=== PATIENT | male | born 1940 | race Caucasian/White ===

== ENCOUNTER 2020-08-20 14:05 | Outpatient (REF) | payer MEDICARE, SELFPAY ==
[2020-08-20 14:55] LABS: Hematocrit 45.3 % (42-52); Hemoglobin 14.8 g/dl (14.0-18.0); Mean Corpuscular HGB Conc 32.7 g/dl (31.0-36.0); Mean Corpuscular Hemoglobin 30.5 pg (27.0-33.0); Mean Corpuscular Volume 93.4 fL (80-98); Mean Platelet Volume 10.5 fL (9.4-12.4); Platelet Count 169 X10*3/uL (160-400); Red Blood Count 4.85 X10*6/uL (4.60-5.80); Red Cell Distribution Width 13.8 % (11.0-16.0); White Blood Count 5.4 X10*3/uL (4.8-10.8)
[2020-08-20 15:02] LABS: Estimated Average Glucose 123 mg/dL; Hemoglobin A1c % 5.9 %
[2020-08-20 15:14] LABS: Alanine Aminotransferase 22 U/L (0-40); Albumin Level 4.1 g/dL (3.5-5.0); Alkaline Phosphatase 65 U/L (39-117); Anion Gap 11 (12-20); Aspartate Amino Transferase 20 U/L (5-37); Bilirubin Direct 0.2 mg/dL (0.0-0.5); Bilirubin Total 0.6 mg/dL (0.0-1.0); Blood Urea Nitrogen 16 mg/dL (9-16); Calcium 8.9 mg/dL (8.4-10.2); Carbon Dioxide 30 mmol/L (22-29); Chloride 104 mmol/L (96-108); Cholesterol 197 mg/dL; Estimated Glomerular Filt Rate > 60; Glucose Random 121 mg/dL (60-115); HDL Cholesterol 55 mg/dL; LDL Cholesterol Calculated 130 mg/dl; Potassium 4.4 mmol/L (3.3-5.1); Sodium 141 mmol/L (135-145); Total Protein 6.6 g/dL (6.5-8.0); Triglycerides 63 mg/dL
[2020-08-20 15:35] LABS: Thyroid Stimulating Hormone 0.76 uIU/mL (0.32-4.0)
[2020-08-24 13:06] LABS: Vitamin D 25-OH, D2 <4 ng/mL; Vitamin D 25-OH, D3 35 ng/mL; Vitamin D 25-OH, Total 35 ng/mL (30-100)
== END 2020-08-20 14:06 | disposition home or self-care (01) ==
LOC: HO.LAB 14:05
PROVIDERS: PCP Internal Medicine; Visit Provider Internal Medicine
DX: E11.9 Type 2 diabetes mellitus without complications (principal)
CPT/HCPCS: 36415; 80048; 80061; 80076; 82306; 83036; 84443; 85027

== ENCOUNTER 2020-09-16 14:53 | Outpatient (REF) | payer MEDICARE, SELFPAY ==
--- NOTE | ~2020-09-16 | XR_ITS ---
EXAMINATION: XR CERVICAL SPINE CLINICAL INFORMATION: M48.50XA - Collapsed vertebra, not elsewhere classified COMPARISON: Radiographs thoracic spine 09/16/2020 TECHNIQUE: Cervical spine is imaged in 4 views: AP, lateral, odontoid, and Fuchs. FINDINGS: The cervical vertebral bodies are normal in height. There is no cervical vertebral compression, spondylolisthesis, destructive process, or prevertebral soft tissue swelling. There are degenerative disc changes greatest at C5-C6 and C6-C7 with mild endplate sclerosis and vertebral spurring. There are also degenerative changes at the other levels of lesser severity and multilevel facet degeneration cervical spine. No visible erosive change. There are calcifications mid paraspinal soft tissues likely atherosclerotic calcification carotid arteries. XR/XR cervical spine 3V IMPRESSION: 1. Multilevel degenerative disc and degenerative facet changes. 2. No cervical vertebral compression, spondylolisthesis, or prevertebral soft tissue swelling. 3. Probable bilateral carotid atherosclerotic calcifications.
--- NOTE | ~2020-09-16 | XR_ITS ---
EXAMINATION: XR LUMBOSACRAL SPINE CLINICAL INFORMATION: M48.50XA - Collapsed vertebra, not elsewhere classified COMPARISON: Radiographs thoracic spine 09/16/2020 TECHNIQUE: Three views of the lumbosacral spine. FINDINGS: There is normal lumbar segmentation with 5 nonrib-bearing lumbar vertebrae of normal height and lumbar lordosis. There is a moderate levocurvature lumbar spine. There is no lumbar vertebral compression, spondylolisthesis, destructive process. There are multilevel degenerative disc changes present, greatest at L3-L4, L4-L5, and L5-S1. This is associated with endplate sclerosis and vertebral spurring. There is also facet degeneration at these levels. The SI joints and visualized sacrum are unremarkable. XR/XR lumbar spine 2-3V IMPRESSION: 1. Levocurvature with multilevel degenerative disc and degenerative facet changes, greatest at L3-S1. 2. No lumbar vertebral compression or spondylolisthesis.
--- NOTE | ~2020-09-16 | XR_ITS ---
EXAMINATION: XR THORACIC SPINE CLINICAL INFORMATION: M48.50XA - Collapsed vertebra, not elsewhere classified COMPARISON: Radiographs cervical spine and lumbar spine 09/16/2020. TECHNIQUE: 3 views of the thoracic spine were obtained. FINDINGS: There is accentuated kyphosis upper to mid thoracic spine with mild dextrocurvature. There is borderline wedging anterior aspect thoracic vertebrae at the kyphosis without focal compression fracture. There is no visible destructive process or spondylolisthesis or paraspinal soft tissue swelling. Multilevel degenerative disc changes are present with disc narrowing and mild endplate sclerosis and multilevel thoracic vertebral body spurring. There is enlarged cardiopericardial silhouette with bipolar pacemaker. Atrial and ventricular leads. The vascularity appears normal. No visible effusion. XR/XR thoracic spine 3V IMPRESSION: 1. Accentuated upper to mid thoracic kyphosis and mild dextrocurvature. 2. No destructive process or paraspinal soft tissue swelling. No focal compression fracture appreciated. Multilevel degenerative disc changes. 3. Enlarged cardiopericardial silhouette. Bipolar pacemaker. Vascularity unremarkable.
[2020-09-16 15:39] LABS: Glucose Urine UA NEG (NEG); Leukocyte Esterase Urine 2+ (NEG); Nitrite Urine POS (NEG); PH 5.5 (5.0-8.0); Specific Gravity - Urine >= 1.030 (1.005-1.025); Urine Blood TRACE (NEG); Urine Ketones NEG (NEG); Urine Protein TRACE MG/DL (NEG-TRACE)
[2020-09-16 16:00] LABS: Appearance Urine HAZY; Color Urine YELLOW
[2020-09-16 16:02] LABS: Bacteria Urine 1+ /LPF; WBC Urine 30-49 /HPF (0-4)
[2020-09-16 16:20] LABS: C Reactive Protein 0.15 mg/dL (< or = 0.50)
[2020-09-16 16:44] LABS: Prostate Specific Antigen Scr 2.99 ng/mL (<0.05-4.0)
== END 2020-09-16 14:54 | disposition home or self-care (01) ==
LOC: HO.LAB 14:53
PROVIDERS: PCP Internal Medicine; Visit Provider Internal Medicine
DX: M06.9 Rheumatoid arthritis, unspecified (principal); M48.50XA Collapsed vertebra, not elsewhere classified, site unspecified, initial encounter for fracture; Z12.5 Encounter for screening for malignant neoplasm of prostate
CPT/HCPCS: 36415; 72040; 72072; 72100; 81001; 84153; 86140

== ENCOUNTER 2021-02-05 09:47 | Emergency (ER) | payer MEDICARE, SELFPAY ==
[2021-02-05 09:57] VITALS: BP 188/99; BP 192/88; PULSE 60; PULSE 70; RESP 15; TEMP 37; O2SAT 95; O2SAT 97; BMI 24.5
--- NOTE | 2021-02-05 10:21 | ED.GENADULT ---
HPI - General Adult General Chief complaint: General Medical Stated complaint: not feeling well Time Seen by Provider: 02/05/21 10:13 Source: patient and EMS Mode of arrival: EMS Limitations: no limitations History of Present Illness HPI narrative: 80 y/o male with history of DM, s/p PPM, RA, smoker who presents to the ER via EMS with reports of hypoxia and increased anxiety. He reports sitting his computer when he started getting blurred vision which has happened in the past. When it happens he usually goes and lays down and it slowly improves. He reports this time it wasn't improving and he started getting anxious. He felt lightheaded. He got his home pulse oximeter which he reports showed a SpO2 60 and HR 94. He got scared and called 911. He denies ever being SOB, no chest pain, no difficulty breathing. EMS found him with normal saturations. MD complaint: hypoxia and anxiety Onset (ago): minute(s) (30) Radiation: non-radiation Severity: moderate Pain Consistency: now resolved Relieving factors: none Exacerbating factors: none Treatments prior to arrival: none Related Data Home Medications Medication Instructions Recorded Confirmed B-complex with vitamin C (Super B 1 tab PO DAILY 08/20/20 12/02/20 Complex-Vitamin C) acetaminophen 500 mg tablet 500 mg PO Q6H PRN 08/20/20 12/02/20 (Tylenol Extra Strength) cholecalciferol (vitamin D3) 10 10 mcg PO DAILY 08/20/20 12/02/20 mcg (400 unit) capsule finasteride 5 mg tablet 5 mg PO DAILY 08/20/20 12/02/20 garlic 1,000 mg capsule 1,000 mg PO DAILY 08/20/20 12/02/20 lutein 10 mg tablet 10 mg PO DAILY 08/20/20 12/02/20 tamsulosin 0.4 mg capsule 0.4 mg PO DAILY 08/20/20 12/02/20 Previous Rx's Medication Instructions Recorded amlodipine 5 mg tablet 5 mg PO DAILY #90 tab 09/27/20 lisinopril 20 mg tablet 20 mg PO DAILY #90 tab 01/30/21 Allergies Allergy/AdvReac Type Severity Reaction Status Date / Time Penicillins Allergy Mild Hives Verified 12/02/20 10:46 Review of Systems Review of Systems: Constitutional: No Fever, No Chills ENT/Mouth: No sore throat, No Rhinorrhea, No Swallowing Difficulty Eyes: No Eye Pain, No Swelling, No Redness, +blurry vision (now resolved) Cardiovascular: No Chest Pain, No SOB, No Orthopnea, No Edema Respiratory: No Cough, No Sputum, No Wheezing, No dyspnea Gastrointestinal: No Nausea, No Vomiting, No Diarrhea, No abdominal Pain Genitourinary: No Dysuria, No Urinary Frequency, No Hematuria Musculoskeletal: No joint pain, No Myalgias Skin: No Skin Lesions, No rash Neuro: No Weakness, No Numbness, + Dizziness (now resolved), No Headache Psych: + Anxiety/Panic, No Depression Heme/Lymph: No Bruising, No Lymphadenopathy Endocrine: No Polyuria, No Polydipsia [facility] Past Medical History Medical History Compression fracture of spine Diabetes High cholesterol Pacemaker Pacemaker Family History Family History Mother Breast cancer Father Substance abuse Social History Social History Housing: House Alcohol intake: never Patient Tobacco Use Status: Current everyday Tobacco user Cigarette Packs Per Day: 1 Use of substances other than those prescribed or required for medical reasons: No Advance Directives: No Advance Directives Information Provided: No service: Yes ([employer] ) Current occupational status: retired Physical Exam Vital Signs: Vital Signs: Last Vital Signs Temp 98.6 F 02/05/21 09:57 Pulse 60 02/05/21 09:57 Resp 15 02/05/21 09:57 BP 192/88 H 02/05/21 09:57 Pulse Ox 97 02/05/21 09:57 Body Mass Index 24.5 Appearance: Alert. Oriented X3. No acute distress. Eyes: Pupils equal, round and reactive to light. ENT: Pharynx normal. Neck: Normal inspection. Neck supple. CVS: Normal heart rate and rhythm. Pulses normal. Paced rhythm. Respiratory: No respiratory distress. Breath sounds normal. Abdomen: Soft and nontender. +BS x4 Skin: Skin warm and dry. Normal skin color. Normal skin turgor. No rashes. Extremities: No lower extremity edema. Neuro: Oriented X 3. No motor deficit. No sensory deficit. Ambulates with a steady gait Course Course Course Narrative: 80 y/o male presenting with transient blurred vision, anxiety and SpO2 60% at home. He is paced at 60 bpm. Most likely he reversed the SpO2 and HR. He had no SOB or chest pain. He has been saturating normally in the ER and with EMS. He is AAO x4 with a non-focal neuro exam. No visual field deficits. Doubt TIA or CVA. His symptoms are recurrent. Will monitor in the ER. Reevaluation(s) Reevaluation #1: Patient remains asymptomatic. SPO2 96% and HR 60. His episode was most likely anxiety related and he misread his pulse oximeter. He is stable for discharge back home. Discharge Plan Discharge Clinical Impression: Anxiety Patient Disposition: Home, Self-Care Instructions: Anxiety (ED) Additional Instructions: Your vital signs remained stable while in the ER and your exam was normal. It is likely you had an anxiety attack - doubt your pulse oximeter showed true low oxygen levels. Follow up with your PCP as needed. If you develop new or worsening symptoms call 911 or come back to the ER for further evaluation. Prescriptions: No Action amlodipine 5 mg tablet 5 mg PO DAILY Qty: 90 RF: 1 lisinopril 20 mg tablet 20 mg PO DAILY Qty: 90 RF: 1 finasteride 5 mg tablet 5 mg PO DAILY RF: 0 tamsulosin 0.4 mg capsule 0.4 mg PO DAILY RF: 0 cholecalciferol (vitamin D3) 10 mcg (400 unit) capsule 10 mcg PO DAILY RF: 0 B-complex with vitamin C [Super B Complex-Vitamin C] Tablet 1 tab PO DAILY RF: 0 garlic 1,000 mg capsule 1,000 mg PO DAILY RF: 0 lutein 10 mg tablet 10 mg PO DAILY RF: 0 acetaminophen [Tylenol Extra Strength] 500 mg tablet 500 mg PO Q6H PRNRF: 0 Referrals: Jin Trejo MD [Primary Care Provider] - 1 week
== END 2021-02-05 11:55 | disposition home or self-care (01) ==
PROVIDERS: Emergency Provider Emergency Medicine; PCP Internal Medicine
DX: F41.9 Anxiety disorder, unspecified (principal); R09.02 Hypoxemia; H53.8 Other visual disturbances; F17.200 Nicotine dependence, unspecified, uncomplicated; Z71.6 Tobacco abuse counseling; Z79.899 Other long term (current) drug therapy
CPT/HCPCS: 99283

== ENCOUNTER 2021-04-21 12:54 | Outpatient (REF) | payer MEDICARE, SELFPAY ==
--- NOTE | ~2021-04-21 | US_ITS ---
EXAMINATION: US LOWER EXTREMITY VENOUS (REFLUX EXAM), BILATERAL CLINICAL INDICATION: This is an 80-year-old male with venous insufficiency and varicose veins. COMPARISON: None. TECHNIQUE: Color flow triplex imaging and compression Doppler was performed to evaluate both the deep and the superficial systems bilaterally. To evaluate the superficial system, the examination was performed in the upright position. Color-flow Doppler ultrasound and compression ultrasound were utilized. In addition, maneuvers were utilized to demonstrate reflux. FINDINGS: 1. DEEP VENOUS ULTRASOUND OF THE RIGHT LOWER EXTREMITY: Common Femoral Vein: Compressible but reflux of 740 ms Femoral vein: Compressible, normal color flow and augmentation. Popliteal Vein: Compressible, normal augmentation. Deep Reflux: There is no evidence of reflux in the deep system in either the common femoral vein or the popliteal vein. There is no evidence of a Rosales's cyst. 2. SUPERFICIAL ULTRASOUND WITH DOPPLER OF RIGHT LOWER EXTREMITY: GREAT SAPHENOUS VEIN: Saphenofemoral Junction: 0.7 cm Mid Thigh: 0.3 cm Above Knee: 0.4 cm Below Knee: 0.3 cm Mid Calf: 0.3 cm Ankle: 0.3 cm GSV REFLUX: No evidence of reflux. DUPLICATED GREAT SAPHENOUS VEIN: There is a 0.4 cm duplicated lateral great saphenous vein without reflux. SMALL SAPHENOUS VEIN: Proximal: 0.3 cm Distal: 0.2 cm SSV REFLUX: No evidence of reflux. VEIN OF GIACOMINI: None Imaged. PERFORATORS: There is a 0.2 cm proximal thigh scaffold worker without reflux. There is a 0.3 cm mid thigh scaffold worker without reflux. VARICOSITIES: None Imaged 3. DEEP VENOUS ULTRASOUND OF THE LEFT LOWER EXTREMITY: Common Femoral Vein: Compressible, normal respiratory variation and augmented flow. Femoral Vein: Compressible, normal color flow and augmentation. Popliteal Vein: Compressible, normal augmentation. Deep Reflux: There is no evidence of reflux in the deep system in either the common femoral vein or the popliteal vein. There is no evidence of a Rosales's cyst. 4. SUPERFICIAL ULTRASOUND WITH DOPPLER OF LEFT LOWER EXTREMITY: GREAT SAPHENOUS VEIN: Saphenofemoral Junction: 0.6 cm Mid Thigh: 0.3 cm Above Knee: 0.3 cm Below Knee: 0.3 cm Mid Calf: 0.2 cm Ankle: 0.4 cm GSV REFLUX: No evidence of reflux. DUPLICATED GREAT SAPHENOUS VEIN: There is a 0.3 cm duplicated medial great saphenous vein without reflux. SMALL SAPHENOUS VEIN: Proximal: 0.2 cm Distal: 0.3 cm SSV REFLUX: No evidence of reflux. VEIN OF GIACOMINI: None Imaged. PERFORATORS: There are 0.3 cm mid calf perforators without reflux. VARICOSITIES: None Imaged US/US venous duplex LE BI IMPRESSION: 1. There are patent bilateral great saphenous veins and small saphenous veins, respectively, without evidence of reflux. 2. There is reflux in the right common femoral vein deep system. 3. There are bilateral perforators as noted.
== END 2021-04-21 12:55 | disposition home or self-care (01) ==
LOC: HO.US 12:54
PROVIDERS: PCP Internal Medicine; Visit Provider Nurse Practitioner Family
DX: I87.2 Venous insufficiency (chronic) (peripheral) (principal); L81.9 Disorder of pigmentation, unspecified
CPT/HCPCS: 93970

== ENCOUNTER 2021-09-15 10:45 | Outpatient (REF) | payer MEDICARE, SELFPAY ==
[2021-09-15 11:12] LABS: Appearance Urine HAZY; Color Urine YELLOW; Glucose Urine UA NEG (NEG); Leukocyte Esterase Urine 3+ (NEG); Nitrite Urine POS (NEG); PH 5.5 (5.0-8.0); Specific Gravity - Urine >= 1.030 (1.005-1.025); UACC Culture Trigger YES; Urine Blood 1+ (NEG); Urine Ketones NEG (NEG); Urine Protein 1+ MG/DL (NEG-TRACE)
[2021-09-15 11:32] LABS: Renal Epithelial Cells Urine TRACE /LPF; Squamous Epithelial Cell Urine TRACE /LPF
[2021-09-15 11:33] LABS: Bacteria Urine 1+ /LPF; RBC Urine 0-2 /HPF (0); WBC Clumps Urine NOTED
== END 2021-09-15 10:46 | disposition home or self-care (01) ==
LOC: HO.LAB 10:45
PROVIDERS: PCP Internal Medicine; Referring Provider Urology; Visit Provider Internal Medicine
DX: R30.0 Dysuria (principal)
CPT/HCPCS: 81001; 87086; 87088; 87186

== ENCOUNTER 2022-01-29 09:33 | Outpatient (REF) | payer MEDICARE, SELFPAY ==
[2022-01-29 10:18] LABS: Hematocrit 44.5 % (42.0-52.0); Hemoglobin 14.5 g/dl (14.0-18.0); Mean Corpuscular HGB Conc 32.6 g/dl (31.0-36.0); Mean Corpuscular Volume 95.1 fL (80.0-98.0); Mean Platelet Volume 10.6 fL (9.4-12.4); Platelet Count 176 X10*3/uL (160-400); Red Blood Count 4.68 X10*6/uL (4.60-5.80); Red Cell Distribution Width 13.8 % (11.0-16.0)
[2022-01-29 10:28] LABS: Estimated Average Glucose 126 mg/dL
[2022-01-29 10:53] LABS: Alanine Aminotransferase 12 U/L (0-40); Albumin Level 4.1 g/dL (3.5-5.0); Alkaline Phosphatase 63 U/L (39-117); Anion Gap 13 (12-20); Aspartate Amino Transferase 16 U/L (5-37); Bilirubin Direct 0.2 mg/dL (0.0-0.5); Bilirubin Total 0.6 mg/dL (0.0-1.0); Blood Urea Nitrogen 18 mg/dL (9-16); Calcium 9.2 mg/dL (8.4-10.2); Carbon Dioxide 30 mmol/L (22-29); Chloride 103 mmol/L (96-108); Cholesterol 193 mg/dL; Estimated Glomerular Filt Rate > 60; Glucose Random 135 mg/dL (60-115); HDL Cholesterol 55 mg/dL; LDL Cholesterol Calculated 128 mg/dl; Potassium 4.2 mmol/L (3.3-5.1); Sodium 142 mmol/L (135-145); Total Protein 6.6 g/dL (6.5-8.0); Triglycerides 51 mg/dL
[2022-01-29 11:20] LABS: Thyroid Stimulating Hormone 1.35 uIU/mL (0.32-4.0)
[2022-01-29 11:42] LABS: Appearance Urine Clear; Color Urine Dark Yellow; Glucose Urine UA Negative (Negative); Leukocyte Esterase Urine Large (3+) (Negative); Nitrite Urine Positive (Negative); PH 5.5 (5.0-9.0); UMIC TRIGGER UA YES; UMIC TRIGGER UACC YES; Urine Blood Trace (Negative); Urine Ketones Negative (Negative); Urine Protein Trace mg/dL (Neg-Trace)
[2022-01-29 11:50] LABS: Bacteria Urine Trace (None Seen); Hyaline Casts Urine 0-2 /LPF (0-2); Squamous Epithelial Cell Urine 0-2 /HPF (0-2); UACC Culture Trigger YES; WBC Urine >50 /HPF (0-5)
== END 2022-01-29 09:34 | disposition home or self-care (01) ==
LOC: HO.LAB 09:33
PROVIDERS: Internal Medicine; PCP Internal Medicine; Visit Provider Internal Medicine
DX: I87.2 Venous insufficiency (chronic) (peripheral) (principal); M06.9 Rheumatoid arthritis, unspecified; R73.9 Hyperglycemia, unspecified; R30.0 Dysuria
CPT/HCPCS: 36415; 80048; 80061; 80076; 81001; 83036; 84443; 85027; 87086; 87088; 87186

== ENCOUNTER 2022-02-13 17:35 | Outpatient (REF) | payer MEDICARE, SELFPAY ==
[2022-02-13 17:52] LABS: Appearance Urine Clear; Color Urine Dark Yellow; Glucose Urine UA Negative (Negative); Leukocyte Esterase Urine Large (3+) (Negative); Nitrite Urine Positive (Negative); PH 5.5 (5.0-9.0); UMIC TRIGGER UACC YES; Urine Blood Negative (Negative); Urine Ketones Negative (Negative); Urine Protein Trace mg/dL (Neg-Trace)
[2022-02-13 18:07] LABS: Bacteria Urine None Seen (None Seen); Hyaline Casts Urine 0-2 /LPF (0-2); RBC Urine 0-2 /HPF (0-2); Squamous Epithelial Cell Urine 0-2 /HPF (0-2); UACC Culture Trigger YES; WBC Urine >50 /HPF (0-5)
== END 2022-02-13 17:36 | disposition home or self-care (01) ==
LOC: HO.LNP 17:35
PROVIDERS: Visit Provider Internal Medicine
DX: R30.0 Dysuria (principal)
CPT/HCPCS: 81001; 87086; 87088; 87186

== ENCOUNTER 2022-02-24 18:27 | Outpatient (REF) | payer MEDICARE, SELFPAY ==
[2022-02-24 18:39] LABS: Appearance Urine Clear; Color Urine Dark Yellow; Glucose Urine UA Negative (Negative); Leukocyte Esterase Urine Large (3+) (Negative); Nitrite Urine Negative (Negative); PH 5.5 (5.0-9.0); UMIC TRIGGER UA YES; Urine Blood Negative (Negative); Urine Ketones Trace mg/dL (Negative); Urine Protein 30 (1+) mg/dL (Neg-Trace)
[2022-02-24 18:41] LABS: Bacteria Urine Trace (None Seen); Hyaline Casts Urine 0-2 /LPF (0-2); Squamous Epithelial Cell Urine 0-2 /HPF (0-2); WBC Urine >50 /HPF (0-5)
== END 2022-02-24 18:28 | disposition home or self-care (01) ==
LOC: HO.LNP 18:27
PROVIDERS: Visit Provider Internal Medicine
DX: R30.0 Dysuria (principal)
CPT/HCPCS: 81001

== ENCOUNTER 2022-05-05 17:41 | Outpatient (REF) | payer MEDICARE, SELFPAY ==
[2022-05-05 18:11] LABS: Appearance Urine Clear; Color Urine Dark Yellow; Glucose Urine UA Negative (Negative); Leukocyte Esterase Urine Moderate (2+) (Negative); Nitrite Urine Positive (Negative); PH 5.5 (5.0-9.0); UMIC TRIGGER UACC YES; Urine Blood Trace (Negative); Urine Ketones Negative (Negative); Urine Protein 30 (1+) mg/dL (Neg-Trace)
[2022-05-05 18:25] LABS: Bacteria Urine None Seen (None Seen); Hyaline Casts Urine 0-2 /LPF (0-2); Squamous Epithelial Cell Urine 0-2 /HPF (0-2); UACC Culture Trigger YES; WBC Urine >50 /HPF (0-5)
== END 2022-05-05 17:42 | disposition home or self-care (01) ==
LOC: HO.LNP 17:41
PROVIDERS: Visit Provider Internal Medicine
DX: R30.0 Dysuria (principal)
CPT/HCPCS: 81001; 87086; 87088; 87186

== ENCOUNTER → 2022-10-14 11:33 | Outpatient (BNVA) | payer MEDICARE, SELFPAY | PROVIDERS: PCP Internal Medicine; Visit Provider Neurological Surgery | DX: M48.062 Spinal stenosis, lumbar region with neurogenic claudication (principal) | CPT/HCPCS: 99202 ==

== ENCOUNTER 2022-10-22 13:01 | Outpatient (REF) | payer MEDICARE, SELFPAY ==
[2022-10-22 13:42] LABS: Estimated Average Glucose 120 mg/dL; Hemoglobin A1c % 5.8 %
== END 2022-10-22 13:02 | disposition home or self-care (01) ==
LOC: HO.LAB 13:01
PROVIDERS: PCP Internal Medicine; Visit Provider Nurse Practitioner Family
DX: E11.9 Type 2 diabetes mellitus without complications (principal)
CPT/HCPCS: 36415; 83036

== ENCOUNTER 2022-12-07 10:59 | Outpatient (REF) | payer MEDICARE, SELFPAY ==
--- NOTE | ~2022-12-07 | MR_ITS ---
EXAMINATION: MR LUMBAR SPINE WITHOUT CONTRAST CLINICAL INFORMATION: Spinal stenosis with neurogenic claudication. COMPARISON: Plain films of the lumbar spine 09/16/2020. TECHNIQUE: MRI of the lumbar spine was obtained using routine sequences without contrast. FINDINGS: VERTEBRAL BODIES AND PARASPINAL STRUCTURES: There is a sigmoid scoliosis convex to the right at the thoracolumbar region, and toward the left with the apex at L3-L4. There is a mild grade 1 anterolisthesis of L4 on L5 and there are retrolistheses of T11 on T12, T12 on L1 and L3 on L4. There is multilevel narrowing of intervertebral disc height, and there are degenerative endplate changes at multiple levels with relatively extensive edematous signal most prominent T11-T12 and L5-S1. There are some fatty endplate changes at L4-L5. Vertebral body heights are maintained, and no fractures are demonstrated. There are focal areas of low signal on all sequences in the body of L1, corresponding to an area of low-attenuation on the plain films, which may be consistent with air cysts. Overall, marrow signal is slightly heterogenous. There are multiple bilateral renal cysts. There is an incompletely visualized area of fullness in the right retrocrural region (image 1/30, sequence 6). There is moderately extensive sigmoid colon diverticulosis. CONUS MEDULLARIS AND CAUDA EQUINA: Normal, terminating at the level of T12-L1. The lower thoracic spinal cord appears normal. The cauda equina nerve roots and filum terminale appear normal. SPINAL LEVELS: T11-T12 and T12-L1: There are posterior disc protrusions without mass effect on the conus or lower thoracic spinal cord. There is bilateral foraminal narrowing at these levels. L1-L2: There is mild bilateral facet arthropathy. There are bilateral foraminal disc protrusions, more prominent on the left without definite exiting nerve root impingement. There is no central stenosis. L2-L3: There is mild bilateral facet arthropathy. The posterior disc protrusion which flattens the ventral thecal sac and extends into the neural foramina bilaterally, with impingement on the exiting L2 nerve roots bilaterally, more severely on the left. The left protrusion extends far laterally with impingement on the extraforaminal left L2 nerve root. There is no central stenosis. L3-L4: There is moderate right and mild left facet arthropathy with ligamenta flava hypertrophy. A posterior disc protrusion flattens the ventral thecal sac with narrowing of the bilateral subarticular recesses. There are bilateral foraminal disc protrusions impinging on the exiting L3 nerve roots bilaterally. There is moderate central stenosis. L4-L5: There is severe right and moderate left facet arthropathy. There is unroofing of the disc as a result of the anterolisthesis and there is narrowing of the bilateral subarticular recesses with impingement on the traversing L5 nerve roots bilaterally. There are bilateral foraminal disc protrusions with impingement on the exiting L4 nerve roots. There is moderate central stenosis. L5-S1: There is severe left and moderate right facet arthropathy with ligamenta flava hypertrophy and facet joint effusions. There is a posterior disc protrusion which is most prominent on the left and there is narrowing of the left greater than right subarticular recesses with impingement on the traversing S1 nerve roots. There are bilateral foraminal disc osteophyte complexes, more severe on the left with impingement on the exiting L5 nerve roots. There is mild to moderate central stenosis. MR/MR lumbar spine wo con IMPRESSION: 1. There is a sigmoid scoliosis, and there are multilevel spondylolistheses. There are no acute fractures or subluxations. 2. At L2-L3 there is a posterior disc protrusion extending into the neural foramina with impingement on the exiting L2 nerve roots bilaterally. The left disc protrusion extends far laterally with impingement on the extraforaminal left L2 nerve root. There is no central stenosis. 3. At L3-L4 there is facet arthropathy and there is a posterior disc protrusion with narrowing of the subarticular recesses. There are bilateral foraminal disc protrusions impinging on the exiting L3 nerve roots. There is moderate central stenosis. 4. At L4-L5 there is facet arthropathy and there is an anterolisthesis. There is narrowing of the bilateral subarticular recesses with impingement on the traversing L5 nerve roots. There is moderate central stenosis. There are bilateral foraminal disc protrusions impinging on the exiting L4 nerve roots. 5. At L5-S1 there is facet arthropathy and there is a posterior disc protrusion. There is narrowing of the left greater than right subarticular recesses with impingement on the traversing S1 nerve roots. There are bilateral foraminal disc osteophyte complexes impinging on the exiting L5 nerve roots. There is mild to moderate central stenosis. 6. There is an incompletely visualized area of soft tissue fullness in the right retrocrural region. There are bilateral renal cysts, most prominent on the right. There is sigmoid colon diverticulosis. These findings could be further evaluated with CT scan of the abdomen and pelvis with contrast. 7. The PSA staff will call to confirm receipt of this report with acknowledgement of the findings and any recommendations.
== END 2022-12-07 11:00 | disposition home or self-care (01) ==
LOC: HO.MRI 10:59
PROVIDERS: PCP Internal Medicine; Visit Provider Neurological Surgery
DX: M48.062 Spinal stenosis, lumbar region with neurogenic claudication (principal)
CPT/HCPCS: 72148

== ENCOUNTER 2023-01-05 14:41 | Outpatient (AMB) | payer MEDICARE, SELFPAY ==
--- NOTE | 2023-01-05 15:11 | A.SPINEOV_ITS ---
Intake Intake Visit Reasons: MRI follow up Intake Note: Mr. Goff is here today for an MRI follow up. MRI done @ [facility] – [place]. Shake Sawyer Required: No Allergies Penicillins Allergy (Mild, Verified 10/22/22 12:20) Hives Assessment & Plan Assessment & Plan (1) Lumbar stenosis with neurogenic claudication: Code(s): M48.062 - Spinal stenosis, lumbar region with neurogenic claudication Plan Dear colleague, On 01/05/2023, so for follow-up to review an MRI of the lumbar spine Russell Goff. His MRI of the lumbar spine shows moderate spinal stenosis at L3-4 and L4-5 and severe left L5 foraminal stenosis. His main complaint is back pain and stiffness in the morning and after prolonged sitting. Today on history it seems that the neurogenic claudication symptom are less pronounced than the back pain. I advised him not to undergo lumbar decompression as this will not help his back pain. I discharged him from further follow-up. I spent 20 minutes in this consult. Thank you for the referral. Do not hesitate to call me with any questions or concerns. Arnaldo Boston MD, PhD Spine Fellowship Trained Neurosurgeon Director, [facility] Coding Level of Care Code Est Pt Level 3 (92699) Diagnoses Lumbar stenosis with neurogenic claudication M48.062
== END 2023-01-05 16:09 | disposition home or self-care (01) ==
PROVIDERS: PCP Internal Medicine; Visit Provider Neurological Surgery
DX: M48.062 Spinal stenosis, lumbar region with neurogenic claudication (principal)
CPT/HCPCS: 99213

== ENCOUNTER → 2023-01-05 14:41 | Outpatient (BNVA) | payer MEDICARE, SELFPAY | PROVIDERS: PCP Internal Medicine; Visit Provider Neurological Surgery | DX: M48.062 Spinal stenosis, lumbar region with neurogenic claudication (principal) | CPT/HCPCS: 99212 ==

== ENCOUNTER 2023-03-04 09:59 | Outpatient (AMB) | payer MEDICARE, SELFPAY ==
--- NOTE | 2023-03-04 10:40 | A.OFFPC_ITS ---
Vital Signs 03/04/23 10:41 Height 5 ft 8 in Weight 160 lb 6 oz BMI 24.4 BP 130/70 Blood Pressure Location Lt brachial Position Sitting Pulse 61 Pulse Source Pulse Oximeter Pulse Oximetry (%) 97 Oxygen Delivery Method Room Air Intake Visit Reasons: HTN Intake Note: Patient is here to follow up on HTN. Legislative Assistant Required: No Fire Services Plumber: Not Required per policy Accompanied by: Self / Same As Patient Allergies Penicillins Allergy (Mild, Verified 03/04/23 15:18) Hives Medication List - Last Reconciled 03/04/23 by Jin Trejo MD acetaminophen (Tylenol Extra Strength) 500 mg PO Q6H PRN amlodipine 5 mg PO DAILY B-complex with vitamin C (Super B Complex-Vitamin C tablet) 1 tab PO DAILY cholecalciferol (vitamin D3) 10 mcg PO DAILY finasteride 5 mg PO DAILY garlic 1,000 mg PO DAILY hydrocortisone 2.5% 1 appl topical BID PRN lisinopril 20 mg PO DAILY lorazepam 0.5 mg PO BEDTIME PRN tamsulosin 0.4 mg PO DAILY Tobacco use date assessed: 03/04/23 Fall risk assessment: No Falls in past year Last assessed Fall Risk: 03/04/23 Dental Screening Dental Screen Date: 03/04/23 Did you have a dental visit in the last 12 months?: No Did you have a dental problem in the last 6 months where you did not have access to dental care?: No Was dental information given to patient?: No HPI HTN HPI Details 82-year-old male presents to the office to discuss his medical conditions. Patient is requesting a refill on his alprazolam. He does have anxiety spells when this medication helps. He does not take it regularly. He is compliant with all medications. Able to function and do his activities of daily living.. ON LICENSE OF [facility] Medical History Compression fracture of spine Pacemaker High cholesterol Diabetes Pacemaker Surgical History History of prostate surgery History of permanent cardiac pacemaker placement Family History Mother Breast cancer Father Substance abuse Social History Housing: House Alcohol intake: never Patient Tobacco Use Status: Current everyday Tobacco user Tobacco use type: Cigarette Cigarette Packs Per Day: 1 Cigarettes Per Day: 20 e-Cigarette/Vaping Use: Never Used 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 Cognitive needs: No Hearing needs: No Vision needs: Yes (glasses) Questionnaire Thrive Questionnaire Date Thrive assessed: 09/11/22 RED-7 AMB Questionnaire RED-7 Date RED - 7 assessed: 10/22/22 Source: Developed by Drs. Andrew Troncoso, Kassy Presley, Kaveh Banda and colleagues, with an educational farrah from [employer]. Physical exam (Primary Care) Vital Signs: Last Vital Signs Pulse 61 03/04/23 10:41 BP 130/70 03/04/23 10:41 Pulse Ox 97 03/04/23 10:41 Oxygen Delivery Method Room Air 03/04/23 10:41 BMI result Body Mass Index 24.4 Tobacco/Smoking Status: Tobacco use Status Tobacco use date assessed 03/04/23 03/04/23 10:47 Patient Tobacco Use Status Current everyday Tobacco 03/04/23 10:47 Tobacco use type Cigarette 03/04/23 10:47 e-Cigarette/Vaping Use Never Used 03/04/23 10:47 Thrive Assessment: Date of Thrive Assessment Date Thrive assessed 09/11/22 03/04/23 10:47 Const General: cooperative and healthy appearing Nutritional Appearance: well nourished Orientation/consciousness: patient oriented x3 Limitations: no limitations HENMT Head: Yes normal to inspection Eyes General: appearance normal, both eyes and all related structures Neck Neck: Yes normal visual inspection Chest Chest palpation & inspection: normal palpation of entire chest wall Resp Effort & Inspection: normal respiratory effort Neuro General: patient oriented x3 Assessment and Plan Assessment & Plan (1) Lumbar stenosis with neurogenic claudication: Code(s): M48.062 - Spinal stenosis, lumbar region with neurogenic claudication Plan: Patient was seen by the neurosurgeon and no surgical options available. (2) Anxiety: Code(s): F41.9 - Anxiety disorder, unspecified Plan: Lorazepam prescriptions written. (3) Diabetes: Code(s): E11.9 - Type 2 diabetes mellitus without complications Plan: Continue current management. Orders: Orders Lipid Panel Today E11.9 - Type 2 diabetes mellitus without complications, F41.9 - Anxiety disorder, unspecified, M48.062 - Spinal stenosis, lumbar region with neurogenic claudication Complete Blood Count no Diff Today E11.9 - Type 2 diabetes mellitus without complications, F41.9 - Anxiety disorder, unspecified, M48.062 - Spinal stenosis, lumbar region with neurogenic claudication Basic Metabolic Panel Today E11.9 - Type 2 diabetes mellitus without complications, F41.9 - Anxiety disorder, unspecified, M48.062 - Spinal stenosis, lumbar region with neurogenic claudication Liver Panel Today E11.9 - Type 2 diabetes mellitus without complications, F41.9 - Anxiety disorder, unspecified, M48.062 - Spinal stenosis, lumbar region with neurogenic claudication Thyroid Stimulating Hormone Today E11.9 - Type 2 diabetes mellitus without complications, F41.9 - Anxiety disorder, unspecified, M48.062 - Spinal stenosis, lumbar region with neurogenic claudication Medications: Refilled lorazepam 0.5 mg PO BEDTIME PRN 14 tabs 0RF anxiety Coding Level of Care Code Est Pt Level 4 (85915) Diagnoses Lumbar stenosis with neurogenic claudication M48.062 Anxiety F41.9 Diabetes E11.9
[2023-03-04 10:41] VITALS: BP 130/70; PULSE 61; O2SAT 97; BMI 24.4
== END 2023-03-04 11:09 | disposition home or self-care (01) ==
PROVIDERS: PCP Internal Medicine; Visit Provider Internal Medicine
DX: M48.062 Spinal stenosis, lumbar region with neurogenic claudication (principal); F41.9 Anxiety disorder, unspecified; E11.9 Type 2 diabetes mellitus without complications
CPT/HCPCS: 99214

== ENCOUNTER 2023-03-04 11:28 | Outpatient (REF) | payer MEDICARE, SELFPAY ==
[2023-03-04 13:42] LABS: Hematocrit 43.8 % (42.0-52.0); Hemoglobin 14.3 g/dl (14.0-18.0); Mean Corpuscular HGB Conc 32.6 g/dl (31.0-36.0); Mean Corpuscular Hemoglobin 31.1 pg (27.0-33.0); Mean Corpuscular Volume 95.2 fL (80.0-98.0); Mean Platelet Volume 11.3 fL (9.4-12.4); Platelet Count 151 X10*3/uL (160-400); Red Cell Distribution Width 13.6 % (11.0-16.0); White Blood Count 5.7 X10*3/uL (4.8-10.8)
[2023-03-04 13:55] LABS: Appearance Urine Cloudy; Color Urine Dark Yellow; Glucose Urine UA Negative (Negative); Leukocyte Esterase Urine Large (3+) (Negative); Nitrite Urine Positive (Negative); PH 5.5 (5.0-9.0); Specific Gravity - Urine 1.025 (1.005-1.025); UMIC TRIGGER UACC YES; Urine Blood Small (1+) (Negative); Urine Ketones Trace mg/dL (Negative); Urine Protein 30 (1+) mg/dL (Neg-Trace)
[2023-03-04 14:26] LABS: Bacteria Urine 2+ (None Seen); Squamous Epithelial Cell Urine 0-2 /HPF (0-2); UACC Culture Trigger YES; WBC Urine >50 /HPF (0-5)
[2023-03-04 14:27] LABS: Alanine Aminotransferase 15 U/L (0-40); Albumin Level 3.9 g/dL (3.5-5.0); Alkaline Phosphatase 58 U/L (39-117); Anion Gap 11 (12-20); Aspartate Amino Transferase 20 U/L (5-37); Bilirubin Direct 0.2 mg/dL (0.0-0.5); Bilirubin Total 0.5 mg/dL (0.0-1.0); Blood Urea Nitrogen 15 mg/dL (9-16); Calcium 9.5 mg/dL (8.4-10.2); Carbon Dioxide 29 mmol/L (22-29); Chloride 103 mmol/L (96-108); Cholesterol 191 mg/dL (<200); Estimated Glomerular Filt Rate > 60; Glucose Random 105 mg/dL (60-115); HDL Cholesterol 55 mg/dL (>40); LDL Cholesterol Calculated 124 mg/dL (<100); Potassium 4.3 mmol/L (3.3-5.1); Sodium 139 mmol/L (135-145); Total Protein 6.8 g/dL (6.5-8.0); Triglycerides 60 mg/dL (<150)
[2023-03-04 14:34] LABS: Thyroid Stimulating Hormone 1.28 uIU/mL (0.32-4.0)
== END 2023-03-04 11:29 | disposition home or self-care (01) ==
LOC: HO.LAB 11:28
PROVIDERS: PCP Internal Medicine; Visit Provider Internal Medicine
DX: M48.062 Spinal stenosis, lumbar region with neurogenic claudication (principal); F41.9 Anxiety disorder, unspecified; E11.9 Type 2 diabetes mellitus without complications; R30.0 Dysuria
CPT/HCPCS: 36415; 80048; 80061; 80076; 81001; 84443; 85027; 87086; 87088; 87186

== ENCOUNTER 2023-05-25 14:46 | Outpatient (AMB) | payer MEDICARE, SELFPAY ==
--- NOTE | 2023-05-25 14:42 | A.OFFPC_ITS ---
Intake Visit Reasons: E/D [facility] 05/21/23 Intake Note: Patient is here to follow-up after a visit the emergency department at [facility] on 05/21/23 Dubbing Machine Operator Required: No Tube Lancer: Not Required per policy Accompanied by: Self / Same As Patient Allergies Penicillins Allergy (Mild, Verified 05/26/23 06:23) Hives Medication List - Last Reconciled 05/26/23 by Jin Trejo MD acetaminophen (Tylenol Extra Strength) 500 mg PO Q6H PRN amlodipine 5 mg PO DAILY B-complex with vitamin C (Super B Complex-Vitamin C tablet) 1 tab PO DAILY cholecalciferol (vitamin D3) 10 mcg PO DAILY finasteride 5 mg PO DAILY garlic 1,000 mg PO DAILY hydrocortisone 2.5% 1 appl topical BID PRN lisinopril 20 mg PO DAILY lorazepam 0.5 mg PO BEDTIME PRN tamsulosin 0.4 mg PO DAILY Tobacco use date assessed: 05/25/23 Fall risk assessment: No Falls in past year Last assessed Fall Risk: 05/25/23 Dental Screening Dental Screen Date: 05/25/23 Did you have a dental visit in the last 12 months?: Yes Did you have a dental problem in the last 6 months where you did not have access to dental care?: No Was dental information given to patient?: No HPI E/D [facility] 05/21/23 HPI Details 82-year-old male wishes to discuss his [facility] health via [facility]. Patient was recently admitted to a hospital in [place] for pneumonia. He was discharged home on antibiotics and prednisone. Patient's symptoms of coughing and shortness of breath have improved. He is now back at his baseline state of health. Unfortunately he has began to smoke again. He has resumed taking his medications that he was taking prior to hospital admission. There was some confusion regarding the dosage on his amlodipine. 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 1. Little interest or pleasure in doing things: not at all 2. Feeling down, depressed, or hopeless: not at all 3. Trouble falling or staying asleep, or sleeping too much: not at all 4. Feeling tired or having little energy: not at all 5. Poor appetite or overeating: not at all 6. Feeling bad about yourself - or that you are a failure or have let yourself or your family down: not at all 7. Trouble concentrating on things, such as reading the newspaper or watching television: not at all 8. Moving or speaking so slowly that other people could have noticed. Or the opposite - being so fidgety or restless that you have been moving around a lot more than usual: not at all 9. Thoughts that you would be better off or of hurting yourself in some way: not at all Total score: 0 Depression Screening Interpretation: Negative Depression Screening Done: Yes Source: Developed by Drs. Andrew Troncoso, Kassy Presley, Kaveh Banda and colleagues, with an educational farrah from [employer]. Thrive Questionnaire Date Thrive assessed: 05/25/23 I am a: Patient What is your living situation today?: I have a steady place to live Within the past 12 months, did the food you bought not last and you didn't have the money to get more?: Never true Within the past 12 months, did you worry whether your food would run out before you got money to buy more?: Never true Do you have trouble paying for medicines?: No Do you have trouble getting transportation to medical appointments?: No Do you have trouble paying your heating and electricity bill?: No Do you have trouble taking care of your child, family member or friend?: No Do you have trouble with day-to-day activities such as bathing, preparing meals, shopping, managing finances, etc.?: No Are you currently unemployed and looking for a job?: No Are you interested in more education?: No Currently or been in a relationship where the following occur: no concerns reported AUDIT C Alcohol Use Questionnaire (AUDIT-C) 1. How often do you have a drink containing alcohol?: Never Total Score: 0 RED-7 AMB Questionnaire RED-7 Date RED - 7 assessed: 05/25/23 Feeling nervous, anxious, or on edge: 0 = Not at all Not being able to stop or control worryin = Not at all Worrying too much about different things: 0 = Not at all Trouble relaxin = Not at all Being so restless that it is hard to sit still: 0 = Not at all Becoming easily annoyed or irritable: 0 = Not at all Feeling afraid as if something awful might happen: 0 = Not at all Total RED-7 score (0-4 normal; 5-9 mild; 10-14 moderate; 15-21 severe): 0 Source: Developed by Drs. Andrew Troncoso, Kassy Presley, Kaveh Banda and colleagues, with an educational farrah from [employer]. Review of Systems Const Denies body aches, Denies headache(s) and Denies weakness Eyes Denies blurry vision ENT Denies headache(s) Neuro Denies headache(s) and Denies weakness Physical exam (Primary Care) Tobacco/Smoking Status: Tobacco use Status Tobacco use date assessed 05/25/23 05/25/23 14:45 Patient Tobacco Use Status Current everyday Tobacco 05/25/23 14:45 Tobacco use type Cigarette 05/25/23 14:45 e-Cigarette/Vaping Use Never Used 05/25/23 14:45 PHQ-9: PHQ-9 Score PHQ-9: Total score 0 05/25/23 14:45 Depression Screening Interpretation: Negative Thrive Assessment: Date of Thrive Assessment Date Thrive assessed 05/25/23 05/25/23 14:45 Currently or been in a relationship where the following occur: no concerns reported Telehealth Telehealth Location of provider rendering services: practice address Location of patient: address on file Patient Identification confirmed using: Name, : Yes Telehealth method: voice only Patient verbally consented to treatment: Yes Patient verbally consented to billing insurance company: Yes Patient informed of any privacy concerns related to visit: Yes Minutes spent on Phone/Video with Pt.: 15 Assessment and Plan Assessment & Plan (1) Pneumonia: Code(s): J18.9 - Pneumonia, unspecified organism Plan: ER visit from his recent hospitalization was reviewed. Amlodipine should be continued at 5 mg a day. Patient was counseled again to quit smoking. He requested his lorazepam prescription which was filled. Medications: Refilled lorazepam 0.5 mg PO BEDTIME PRN 14 tabs 0RF anxiety Coding Level of Care Code Tele Est Pt Level 3 (47830) Diagnoses Pneumonia J18.9
== END 2023-05-25 16:08 | disposition home or self-care (01) ==
LOC: HO.HMGH 14:46
PROVIDERS: PCP Internal Medicine; Visit Provider Internal Medicine
DX: J18.9 Pneumonia, unspecified organism (principal)
CPT/HCPCS: 99442

== ENCOUNTER 2023-06-10 10:08 | Outpatient (AMB) | payer MEDICARE, SELFPAY ==
--- NOTE | 2023-06-10 10:24 | A.OFFPC_ITS ---
Vital Signs 06/10/23 10:28 Height 5 ft 8 in Weight 152 lb 6 oz BMI 23.2 BP 124/70 Blood Pressure Location Lt brachial Position Sitting Pulse 68 Pulse Source Pulse Oximeter Pulse Oximetry (%) 96 Oxygen Delivery Method Room Air Intake Visit Reasons: 3mth f/u Intake Note: Patient is here to follow up on HTN, DM. Assistant Farm Operations Manager Required: No Electronics Test Engineer: Present Accompanied by: Daughter Allergies Penicillins Allergy (Mild, Verified 06/11/23 15:02) Hives Medication List - Last Reconciled 06/11/23 by Jin Trejo MD acetaminophen (Tylenol Extra Strength) 500 mg PO Q6H PRN amlodipine 5 mg PO DAILY B-complex with vitamin C (Super B Complex-Vitamin C tablet) 1 tab PO DAILY cholecalciferol (vitamin D3) 10 mcg PO DAILY finasteride 5 mg PO DAILY garlic 1,000 mg PO DAILY hydrocortisone 2.5% 1 appl topical BID PRN lisinopril 20 mg PO DAILY lorazepam 0.5 mg PO BEDTIME PRN tamsulosin 0.4 mg PO DAILY Tobacco use date assessed: 05/25/23 Fall risk assessment: No Falls in past year Last assessed Fall Risk: 06/10/23 HPI 3mth f/u HPI Details 82-year-old male presents to the office to discuss his chronic medical conditions. Patient is accompanied by his daughter on this visit. He is reporting to do well and continuing the medications. He is completed the antibiotics. Continuing to use the inhaler. He is reverted back to his pre hospital admission blood pressure dosages. Requesting a refill on his anxiolytics. 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 Andrew Troncoso, Kassy Presley, Kaveh Banda and colleagues, with an educational farrah from [employer]. Physical exam (Primary Care) Vital Signs: Last Vital Signs Pulse 68 06/10/23 10:28 BP 124/70 06/10/23 10:28 Pulse Ox 96 06/10/23 10:28 Oxygen Delivery Method Room Air 06/10/23 10:28 Care Plan Goal for BP management: Blood pressure is in range. Continue current medications. BMI result Body Mass Index 23.2 Tobacco/Smoking Status: Tobacco use Status Tobacco use date assessed 05/25/23 06/10/23 10:26 Patient Tobacco Use Status Current everyday Tobacco 06/10/23 10:26 Tobacco use type Cigarette 06/10/23 10:26 e-Cigarette/Vaping Use Never Used 06/10/23 10:26 Are you ready to quit: No Tobacco cessation counseling provided: No Thrive Assessment: Date of Thrive Assessment Date Thrive assessed 05/25/23 06/10/23 10:26 Const General: cooperative and healthy appearing Nutritional Appearance: well nourished Orientation/consciousness: patient oriented x3 Limitations: no limitations HENMT Head: Yes normal to inspection Eyes General: appearance normal, both eyes and all related structures Neck Neck: Yes normal visual inspection Chest Chest palpation & inspection: normal palpation of entire chest wall Resp Effort & Inspection: normal respiratory effort Neuro General: patient oriented x3 Results AMB Hemoglobin A1c AMB Hemoglobin A1c 6.8 % Last Edit by JOSE Tan on 06/10/23 10:45 Results Reviewed Results Reviewed: Laboratory Last Values Hgb A1c (Clinic) 6.8 % (4.0-6.0) H 06/10/23 10:26 Assessment and Plan Assessment & Plan (1) Anxiety: Code(s): F41.9 - Anxiety disorder, unspecified Plan: Anxiolytics prescribed. He takes 15 pills over 30 days. (2) Tobacco use disorder: Code(s): F17.200 - Nicotine dependence, unspecified, uncomplicated Plan: Patient was counseled on the dangers of smoking. (3) Diabetes: Code(s): E11.9 - Type 2 diabetes mellitus without complications Plan: A1c is 6.8. No medications have been started. Will continue to follow. (4) Essential hypertension: Code(s): I10 - Essential (primary) hypertension Plan: Blood pressure is in range. Continue medications at same dosage. Orders: Orders AMB Hemoglobin A1c 06/10/23 E11.9 - Type 2 diabetes mellitus without complications Medications: Refilled lisinopril 20 mg PO DAILY 90 tabs 1RF lorazepam 0.5 mg PO BEDTIME PRN 14 tabs 0RF anxiety Coding Level of Care Code Est Pt Level 4 (57761) Diagnoses Anxiety F41.9 Tobacco use disorder F17.200 Diabetes E11.9 Essential hypertension I10
[2023-06-10 10:28] VITALS: BP 124/70; PULSE 68; O2SAT 96; BMI 23.2
== END 2023-06-10 11:29 | disposition home or self-care (01) ==
PROVIDERS: PCP Internal Medicine; Visit Provider Internal Medicine
DX: E11.9 Type 2 diabetes mellitus without complications (principal); F41.9 Anxiety disorder, unspecified; F17.210 Nicotine dependence, cigarettes, uncomplicated; I10 Essential (primary) hypertension
CPT/HCPCS: 83036; 99214

== ENCOUNTER 2023-08-05 10:14 | Outpatient (AMB) | payer MEDICARE, SELFPAY ==
--- NOTE | 2023-08-05 10:36 | MHC.PC.OV ---
Vital Signs 08/05/23 10:37 Height 5 ft 8 in Weight 157 lb 2 oz BMI 23.9 BP 130/70 Blood Pressure Location Lt brachial Position Sitting Pulse 57 Pulse Source Pulse Oximeter Pulse Oximetry (%) 95 Oxygen Delivery Method Room Air Intake Visit Reasons: Med Discussion Intake Note: Patient is here to follow up on Medication review. Bow Machine Operator Required: No Organic Section Technical Lead: Not Required per policy Accompanied by: Self / Same As Patient Allergies Penicillins Allergy (Mild, Verified 08/05/23 10:37) Hives Tobacco use date assessed: 08/05/23 Fall risk assessment: No Falls in past year Last assessed Fall Risk: 08/05/23 Dental Screening Dental Screen Date: 08/05/23 Did you have a dental visit in the last 12 months?: No Did you have a dental problem in the last 6 months where you did not have access to dental care?: No Was dental information given to patient?: No HPI Med Discussion HPI Details 83-year-old male presents to the office to discuss his chronic medical condition. He is at baseline state of health and compliant with medications. Continues to smoke. Able to function and do his activities of daily living. 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 Andrew Troncoso, Kassy Presley, Kaveh Banda and colleagues, with an educational farrah from [employer]. Physical exam (Primary Care) Vital Signs: Last Vital Signs Pulse 57 08/05/23 10:37 BP 130/70 08/05/23 10:37 Pulse Ox 95 08/05/23 10:37 Oxygen Delivery Method Room Air 08/05/23 10:37 BMI result Body Mass Index 23.9 Tobacco/Smoking Status: Tobacco use Status Tobacco use date assessed 08/05/23 08/05/23 10:43 Patient Tobacco Use Status Current everyday Tobacco 08/05/23 10:43 Tobacco use type Cigarette 08/05/23 10:43 e-Cigarette/Vaping Use Never Used 08/05/23 10:43 Thrive Assessment: Date of Thrive Assessment Date Thrive assessed 05/25/23 08/05/23 10:43 Const General: cooperative and healthy appearing Nutritional Appearance: well nourished Orientation/consciousness: patient oriented x3 Limitations: no limitations HENMT Head: Yes normal to inspection Eyes General: appearance normal, both eyes and all related structures Neck Neck: Yes normal visual inspection Chest Chest palpation & inspection: normal palpation of entire chest wall Resp Effort & Inspection: normal respiratory effort Neuro General: patient oriented x3 Assessment and Plan Assessment & Plan (1) Essential hypertension: Code(s): I10 - Essential (primary) hypertension Plan: Blood pressure is stable. Continue medications at same dosage. Medications: Refilled amlodipine 5 mg PO DAILY 90 tabs 1RF Coding Level of Care Code Est Pt Level 3 (64665) Diagnoses Essential hypertension I10
[2023-08-05 10:37] VITALS: BP 130/70; PULSE 57; O2SAT 95; BMI 23.9
== END 2023-08-05 12:07 | disposition home or self-care (01) ==
PROVIDERS: PCP Internal Medicine; Visit Provider Internal Medicine
DX: I10 Essential (primary) hypertension (principal)
CPT/HCPCS: 99213

== ENCOUNTER 2023-09-23 14:12 | Outpatient (AMB) | payer MEDICARE, SELFPAY ==
--- NOTE | 2023-09-23 14:17 | MHC.PC.OV ---
Vital Signs 09/23/23 14:18 Height 5 ft 8 in Weight 155 lb 8 oz BMI 23.6 BP 124/64 Blood Pressure Location Lt brachial Position Sitting Pulse 63 Pulse Source Pulse Oximeter Pulse Oximetry (%) 96 Oxygen Delivery Method Room Air Intake Visit Reasons: 3mth f/u Intake Note: Patient is here to follow up on DM, HTN, Hyperglycemia. Senior Network Systems Engineer Required: No Patch Machine Operator: Not Required per policy Accompanied by: Self / Same As Patient Allergies Penicillins Allergy (Mild, Verified 09/23/23 14:18) Hives Tobacco use date assessed: 09/23/23 Fall risk assessment: No Falls in past year Last assessed Fall Risk: 09/23/23 Dental Screening Dental Screen Date: 08/05/23 HPI 3mth f/u HPI Details 83 yr old male presents to the office to discuss his chronic medical conditions. Walks in unassisted and alone. Reports the anxiety symptoms are reasonably under control. He has good and bad days. Able to function and do all ADL's. Continues to smoke tobacco. Pt wants a rash on the right upper thigh evaluated. He does not recall any bites. [facility] Medical History (Updated 09/23/23 @ 14:44 by Jin Trejo MD) Inguinal hernia of right side without obstruction or gangrene Essential hypertension Compression fracture of spine Pacemaker High cholesterol Diabetes Pacemaker Surgical History History of prostate surgery History of permanent cardiac pacemaker placement Family History Mother Breast cancer Father Substance abuse Social History Housing: House Alcohol intake: never Patient Tobacco Use Status: Current everyday Tobacco user Tobacco use type: Cigarette Cigarette Packs Per Day: 1 Cigarettes Per Day: 20 e-Cigarette/Vaping Use: Never Used 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 Andrew Troncoso, Kassy Presley, Kaveh Banda and colleagues, with an educational farrah from [employer]. Physical exam (Primary Care) Vital Signs: Last Vital Signs Pulse 63 09/23/23 14:18 BP 124/64 09/23/23 14:18 Pulse Ox 96 09/23/23 14:18 Oxygen Delivery Method Room Air 09/23/23 14:18 Care Plan Goal for BP management: BP is in range BMI result Body Mass Index 23.6 Tobacco/Smoking Status: Tobacco use Status Tobacco use date assessed 09/23/23 09/23/23 14:25 Patient Tobacco Use Status Current everyday Tobacco 09/23/23 14:25 Tobacco use type Cigarette 09/23/23 14:25 e-Cigarette/Vaping Use Never Used 09/23/23 14:25 Thrive Assessment: Date of Thrive Assessment Date Thrive assessed 05/25/23 09/23/23 14:25 Const General: cooperative and healthy appearing Nutritional Appearance: well nourished Orientation/consciousness: patient oriented x3 Limitations: no limitations HENMT Head: Yes normal to inspection Eyes General: appearance normal, both eyes and all related structures Neck Neck: Yes normal visual inspection Chest Chest palpation & inspection: normal palpation of entire chest wall Resp Effort & Inspection: normal respiratory effort Other: Non reducible inguinal hernia on the right side. Skin Other: Right upper thigh: Fading erythema, 1 cm in size, no evidence of tick bite Neuro General: patient oriented x3 Results AMB Hemoglobin A1c AMB Hemoglobin A1c 6.3 % Last Edit by JOSE Tan on 09/23/23 14:30 Results Reviewed Results Reviewed: Laboratory Last Values Hgb A1c (Clinic) 6.3 % (4.0-6.0) H 09/23/23 14:13 Assessment and Plan Assessment & Plan (1) Essential hypertension: Code(s): I10 - Essential (primary) hypertension Plan: BP is in range, continue current medications/ (2) Lumbar stenosis with neurogenic claudication: Code(s): M48.062 - Spinal stenosis, lumbar region with neurogenic claudication Plan: Declined physical therapy. Stretching exercises suggested. (3) Anxiety: Code(s): F41.9 - Anxiety disorder, unspecified Plan: Symptoms reasonably controlled. Continue current medications at same dosage. (4) Tobacco use disorder: Code(s): F17.200 - Nicotine dependence, unspecified, uncomplicated Plan: Pt was encouraged to quit smoking (5) Inguinal hernia of right side without obstruction or gangrene: Code(s): K40.90 - Unilateral inguinal hernia, without obstruction or gangrene, not specified as recurrent Plan: Condition is stable. Reassurance. (6) Tick bite: Code(s): W57.XXXA - Bitten or stung by nonvenomous insect and other nonvenomous arthropods, initial encounter Plan: No tick seen, rash also is fading. No antibiotics needed (7) Diabetes: Code(s): E11.9 - Type 2 diabetes mellitus without complications Plan: A1c is 6.3. No medications needed. Orders: Orders AMB Hemoglobin A1c Today E11.9 - Type 2 diabetes mellitus without complications Coding Level of Care Code Est Pt Level 4 (26860) Diagnoses Essential hypertension I10 Lumbar stenosis with neurogenic claudication M48.062 Anxiety F41.9 Tobacco use disorder F17.200 Inguinal hernia of right side without obstruction or gangrene K40.90 Tick bite W57.XXXA Diabetes E11.9
[2023-09-23 14:18] VITALS: BP 124/64; PULSE 63; O2SAT 96; BMI 23.6
== END 2023-09-23 14:44 | disposition home or self-care (01) ==
PROVIDERS: PCP Internal Medicine; Visit Provider Internal Medicine
DX: I10 Essential (primary) hypertension (principal); M48.062 Spinal stenosis, lumbar region with neurogenic claudication; F41.9 Anxiety disorder, unspecified; E11.9 Type 2 diabetes mellitus without complications; F17.210 Nicotine dependence, cigarettes, uncomplicated; K40.90 Unilateral inguinal hernia, without obstruction or gangrene, not specified as recurrent; W57.XXXA Bitten or stung by nonvenomous insect and other nonvenomous arthropods, initial encounter
CPT/HCPCS: 83036; 99214

== ENCOUNTER 2024-01-06 14:08 | Outpatient (AMB) | payer MEDICARE, SELFPAY ==
[2024-01-06 14:10] VITALS: BP 96/70; PULSE 61; O2SAT 94; BMI 23.0
--- NOTE | 2024-01-06 14:10 | A.OFFPC_ITS ---
Vital Signs 01/06/24 14:10 Height 5 ft 8 in Weight 151 lb 6 oz BMI 23.0 BP 96/70 Blood Pressure Location Lt brachial Position Sitting Pulse 61 Pulse Source Pulse Oximeter Pulse Oximetry (%) 94 Oxygen Delivery Method Room Air Intake Visit Reasons: 3 Month F/U Sterilization Specialist Required: No Accompanied by: Self / Same As Patient Allergies Penicillins Allergy (Mild, Verified 01/07/24 08:01) Hives Medication List - Last Reconciled 01/07/24 by Jin Trejo MD acetaminophen (Tylenol Extra Strength) 500 mg PO Q6H PRN amlodipine 5 mg PO DAILY B-complex with vitamin C (Super B Complex-Vitamin C tablet) 1 tab PO DAILY cholecalciferol (vitamin D3) 10 mcg PO DAILY finasteride 5 mg PO DAILY garlic 1,000 mg PO DAILY hydrocortisone 2.5% 1 appl topical BID PRN lisinopril 20 mg PO DAILY lorazepam 0.5 mg PO BEDTIME PRN tamsulosin 0.4 mg PO DAILY Tobacco use date assessed: 01/06/24 Fall risk assessment: No Falls in past year Last assessed Fall Risk: 01/06/24 Dental Screening Dental Screen Date: 01/06/24 Did you have a dental visit in the last 12 months?: No Did you have a dental problem in the last 6 months where you did not have access to dental care?: No Was dental information given to patient?: No HPI 3 Month F/U HPI Details 83-year-old male presents to the office to discuss his chronic medical conditions. Patient walks in unassisted and comes to the office alone. He is at baseline state of health. Able to do his activities of daily living including driving. Reports no incontinence to urine. No fevers or chills. Patient believes he lost some weight 2 years ago and has never regained the weight. His appetite is normal. Reports no symptoms of pain. Bowel movements are regular. FORMERLY [facility], [facility]–1983 Medical History Inguinal hernia of right side without obstruction or gangrene Essential hypertension Compression fracture of spine Pacemaker High cholesterol Diabetes Pacemaker Surgical History History of prostate surgery History of permanent cardiac pacemaker placement Family History Mother Breast cancer Father Substance abuse Social History Housing: House Alcohol intake: never Patient Tobacco Use Status: Current everyday Tobacco user Tobacco use type: Cigarette Cigarette Packs Per Day: 1 Cigarettes Per Day: 20 e-Cigarette/Vaping Use: Never Used 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 1. Little interest or pleasure in doing things: not at all 2. Feeling down, depressed, or hopeless: not at all 3. Trouble falling or staying asleep, or sleeping too much: not at all 4. Feeling tired or having little energy: not at all 5. Poor appetite or overeating: not at all 6. Feeling bad about yourself - or that you are a failure or have let yourself or your family down: not at all 7. Trouble concentrating on things, such as reading the newspaper or watching television: not at all 8. Moving or speaking so slowly that other people could have noticed. Or the opposite - being so fidgety or restless that you have been moving around a lot more than usual: not at all 9. Thoughts that you would be better off or of hurting yourself in some way: not at all Total score: 0 Depression Screening Interpretation: Negative Depression Screening Done: Yes Source: Developed by Drs. Andrew Troncoso, Kassy Presley, Kaveh Banda and colleagues, with an educational farrah from [employer]. Thrive Questionnaire Date Thrive assessed: 01/06/24 I am a: Patient What is your living situation today?: I have a steady place to live Within the past 12 months, did the food you bought not last and you didn't have the money to get more?: Never true Within the past 12 months, did you worry whether your food would run out before you got money to buy more?: Never true Do you have trouble paying for medicines?: No Do you have trouble getting transportation to medical appointments?: No Do you have trouble paying your heating and electricity bill?: No Do you have trouble taking care of your child, family member or friend?: No Do you have trouble with day-to-day activities such as bathing, preparing meals, shopping, managing finances, etc.?: No Are you currently unemployed and looking for a job?: No Are you interested in more education?: No Please select the resources that you would like help with: None Currently or been in a relationship where the following occur: No concerns reported THRIVE Score: 0 AUDIT C Alcohol Use Questionnaire (AUDIT-C) 1. How often do you have a drink containing alcohol?: Never Total Score: 0 RED-7 AMB Questionnaire RED-7 Date RED - 7 assessed: 01/06/24 Feeling nervous, anxious, or on edge: 0 = Not at all Not being able to stop or control worryin = Not at all Worrying too much about different things: 0 = Not at all Trouble relaxin = Not at all Being so restless that it is hard to sit still: 0 = Not at all Becoming easily annoyed or irritable: 0 = Not at all Feeling afraid as if something awful might happen: 0 = Not at all Total RED-7 score (0-4 normal; 5-9 mild; 10-14 moderate; 15-21 severe): 0 Source: Developed by Drs. Andrew Troncoso, Kassy Presley, Kaveh Banda and colleagues, with an educational farrah from [employer]. Physical exam (Primary Care) Vital Signs: Last Vital Signs Pulse 61 01/06/24 14:10 BP 96/70 01/06/24 14:10 Pulse Ox 94 01/06/24 14:10 Oxygen Delivery Method Room Air 01/06/24 14:10 Care Plan Goal for BP management: Blood pressure is in range. Continue medications at same dosage. BMI result Body Mass Index 23.0 Tobacco/Smoking Status: Tobacco use Status Tobacco use date assessed 01/06/24 01/06/24 14:21 Patient Tobacco Use Status Current everyday Tobacco 01/06/24 14:21 Tobacco use type Cigarette 01/06/24 14:21 e-Cigarette/Vaping Use Never Used 01/06/24 14:21 Are you ready to quit: No Tobacco cessation counseling provided: No PHQ-9: PHQ-9 Score PHQ-9: Total score 0 01/06/24 14:52 Depression Screening Interpretation: Negative Thrive Assessment: Date of Thrive Assessment Date Thrive assessed 01/06/24 01/06/24 14:21 Currently or been in a relationship where the following occur: No concerns reported Advance Care Planning discussion: Exists, not on file Date of discussion: 01/06/24 Forms completed: Health Care Proxy Actual minutes spent: 5 Const General: cooperative and healthy appearing Nutritional Appearance: well nourished Orientation/consciousness: patient oriented x3 Limitations: no limitations HENMT Head: Yes normal to inspection Eyes General: appearance normal, both eyes and all related structures Neck Neck: Yes normal visual inspection Chest Chest palpation & inspection: normal palpation of entire chest wall Resp Effort & Inspection: normal respiratory effort Neuro General: patient oriented x3 Results AMB Hemoglobin A1c AMB Hemoglobin A1c 5.8 % Last Edit by JOSE Richards on 01/06/24 14 :29 Results Reviewed Results Reviewed: Laboratory Last Values Hgb A1c (Clinic) 5.8 % (4.0-6.0) 01/06/24 14:28 Assessment and Plan Assessment & Plan (1) Tobacco use disorder: Code(s): F17.200 - Nicotine dependence, unspecified, uncomplicated Plan: Patient is unwilling to quit smoking. He understands the risks associated with nicotine. 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 A chest x-ray has been ordered. Will follow with results. Orders: Orders Basic Metabolic Panel 01/06/24 F17.200 - Nicotine dependence, unspecified, uncomplicated, F32.0 - Major depressive disorder, single episode, mild, R63.4 - Abnormal weight loss Liver Panel 01/06/24 F17.200 - Nicotine dependence, unspecified, uncomplicated, F32.0 - Major depressive disorder, single episode, mild, R63.4 - Abnormal weight loss Thyroid Stimulating Hormone 01/06/24 F17.200 - Nicotine dependence, unspecified, uncomplicated, F32.0 - Major depressive disorder, single episode, mild, R63.4 - Abnormal weight loss Erythrocyte Sedimentation Rate 01/06/24 R63.4 - Abnormal weight loss C Reactive Protein 01/06/24 R63.4 - Abnormal weight loss AMB Hemoglobin A1c 01/06/24 Z13.9 - Encounter for screening, unspecified Complete Blood Count no Diff 01/06/24 F17.200 - Nicotine dependence, unspecified, uncomplicated, F32.0 - Major depressive disorder, single episode, mild, R63.4 - Abnormal weight loss Lipid Panel 01/06/24 F17.200 - Nicotine dependence, unspecified, uncomplicated, F32.0 - Major depressive disorder, single episode, mild, R63.4 - Abnormal weight loss UA and rflx microscopic 01/06/24 F17.200 - Nicotine dependence, unspecified, uncomplicated, F32.0 - Major depressive disorder, single episode, mild, R63.4 - Abnormal weight loss Coding Level of Care Code Est Pt Level 4 (16473) Complex EM visit Add On G2211 Diagnoses Tobacco use disorder F17.200 Mild depression F32.0 Weight loss R63.4 Additional Codes Vital Signs *Quality* - Advance Care Planning discussion: Exists, not on file ([id number])
== END 2024-01-06 15:13 | disposition home or self-care (01) ==
PROVIDERS: PCP Internal Medicine; Visit Provider Internal Medicine
DX: E11.9 Type 2 diabetes mellitus without complications (principal)
CPT/HCPCS: 1123F; 83036; 99214; G2211

== ENCOUNTER 2024-01-06 15:29 | Outpatient (REF) | payer MEDICARE, SELFPAY ==
[2024-01-06 16:16] LABS: Hematocrit 45.8 % (42.0-52.0); Hemoglobin 14.9 g/dl (14.0-18.0); Mean Corpuscular HGB Conc 32.5 g/dl (31.0-36.0); Mean Corpuscular Hemoglobin 31.1 pg (27.0-33.0); Mean Corpuscular Volume 95.6 fL (80.0-98.0); Mean Platelet Volume 11.1 fL (9.4-12.4); Platelet Count 145 X10*3/uL (160-400); Red Blood Count 4.79 X10*6/uL (4.60-5.80); White Blood Count 7.1 X10*3/uL (4.8-10.8)
[2024-01-06 16:29] LABS: Appearance Urine Cloudy; Color Urine Dark Yellow; Glucose Urine UA Negative (Negative); Leukocyte Esterase Urine Large (3+) (Negative); Nitrite Urine Positive (Negative); Specific Gravity - Urine 1.025 (1.005-1.025); UMIC TRIGGER UA YES; Urine Blood Small (1+) (Negative); Urine Ketones Trace mg/dL (Negative); Urine Protein 30 (1+) mg/dL (Neg-Trace)
[2024-01-06 16:49] LABS: Alanine Aminotransferase 15 U/L (0-40); Albumin Level 4.4 g/dL (3.5-5.0); Alkaline Phosphatase 69 U/L (39-117); Anion Gap 13 (12-20); Aspartate Amino Transferase 18 U/L (5-37); Bilirubin Direct 0.1 mg/dL (0.0-0.5); Bilirubin Total 0.3 mg/dL (0.0-1.0); Blood Urea Nitrogen 20 mg/dL (9-16); C Reactive Protein 0.44 mg/dL (< or = 0.50); Calcium 9.7 mg/dL (8.4-10.2); Carbon Dioxide 31 mmol/L (22-29); Chloride 103 mmol/L (96-108); Cholesterol 209 mg/dL (<200); Estimated Glomerular Filt Rate > 60; Glucose Random 113 mg/dL (60-115); HDL Cholesterol 57 mg/dL (>40); LDL Cholesterol Calculated 134 mg/dL (<100); Potassium 4.5 mmol/L (3.3-5.1); Sodium 142 mmol/L (135-145); Total Protein 7.2 g/dL (6.5-8.0); Triglycerides 93 mg/dL (<150)
[2024-01-06 17:04] LABS: Thyroid Stimulating Hormone 1.38 uIU/mL (0.32-4.0)
[2024-01-06 17:30] LABS: Bacteria Urine 1+ (None Seen); Hyaline Casts Urine 0-2 /LPF (0-2); RBC Urine 0-2 /HPF (0-2); WBC Urine 21-50 /HPF (0-5)
[2024-01-06 18:15] LABS: Erythrocyte Sedimentation Rate 4 MM/HR (0-15)
== END 2024-01-06 15:30 | disposition home or self-care (01) ==
LOC: HO.LAB 15:29
PROVIDERS: PCP Internal Medicine; Visit Provider Internal Medicine
DX: R63.4 Abnormal weight loss (principal); F17.200 Nicotine dependence, unspecified, uncomplicated; F32.0 Major depressive disorder, single episode, mild
CPT/HCPCS: 36415; 80048; 80061; 80076; 81001; 84443; 85027; 85652; 86140

== ENCOUNTER 2024-04-19 10:50 | Outpatient (AMB) | payer MEDICARE, SELFPAY ==
[2024-04-19 11:00] VITALS: BP 128/80; PULSE 61; O2SAT 95; BMI 23.0
--- NOTE | 2024-04-19 11:00 | A.OFFPC_ITS ---
Vital Signs 04/19/24 11:00 Height 5 ft 8 in Weight 151 lb BMI 23.0 BP 128/80 Blood Pressure Location Lt brachial Position Sitting Pulse 61 Pulse Source Pulse Oximeter Pulse Oximetry (%) 95 Oxygen Delivery Method Room Air Intake Visit Reasons: 3 Month F/U - see comments Service Bar Cashier Required: No Accompanied by: Self / Same As Patient Allergies Penicillins Allergy (Mild, Verified 04/19/24 11:01) Hives Tobacco use date assessed: 01/06/24 Fall risk assessment: No Falls in past year Last assessed Fall Risk: 04/19/24 Dental Screening Dental Screen Date: 01/06/24 [facility] Medical History Inguinal hernia of right side without obstruction or gangrene Essential hypertension Compression fracture of spine Pacemaker High cholesterol Diabetes Pacemaker Surgical History History of prostate surgery History of permanent cardiac pacemaker placement Family History Mother Breast cancer Father Substance abuse Social History Housing: House Alcohol intake: never Patient Tobacco Use Status: Current everyday Tobacco user Tobacco use type: Cigarette Cigarette Packs Per Day: 1 Cigarettes Per Day: 20 e-Cigarette/Vaping Use: Never Used 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 Andrew Troncoso, Kassy Presley, Kaveh Banda and colleagues, with an educational farrah from [employer]. Physical exam (Primary Care) Vital Signs: Last Vital Signs Pulse 61 04/19/24 11:00 BP 128/80 04/19/24 11:00 Pulse Ox 95 04/19/24 11:00 Oxygen Delivery Method Room Air 04/19/24 11:00 BMI result Body Mass Index 23.0 Tobacco/Smoking Status: Tobacco use Status Tobacco use date assessed 08/22/24 12/04/24 11:01 Patient Tobacco Use Status Current everyday Tobacco 04/19/24 11:01 Tobacco use type Cigarette 04/19/24 11:01 e-Cigarette/Vaping Use Never Used 04/19/24 11:01 Thrive Assessment: Date of Thrive Assessment Date Thrive assessed 01/06/24 04/19/24 11:01 Coding Level of Care Code Est Pt Level 4 (17642) Complex EM visit Add On G2211 Diagnoses Mild depression F32.0 Essential hypertension I10 Compression fracture of lumbar vertebra, initial encounter, unspecified lumbar vertebral level S32.000A Encounter type: initial encounter Fracture of vertebra location: lumbar Lumbar vertebra fracture level: unspecified lumbar vertebra Tobacco use disorder F17.200 Assessment & Plan Assessment & Plan (1) Mild depression: Code(s): F32.0 - Major depressive disorder, single episode, mild Category: Medical Plan: Condition stable (2) Essential hypertension: Code(s): I10 - Essential (primary) hypertension Category: Medical (3) Compression fracture of spine: Code(s): M48.50XA - Collapsed vertebra, not elsewhere classified, site unspecified, initial encounter for fracture Category: Medical Qualifiers: Encounter type: initial encounter Fracture of vertebra location: lumbar Lumbar vertebra fracture level: unspecified lumbar vertebra Qualified Code(s): S32.000A - Wedge compression fracture of unspecified lumbar vertebra, initial encounter for closed fracture Plan: Condition stable (4) Tobacco use disorder: Code(s): F17.200 - Nicotine dependence, unspecified, uncomplicated Category: Medical Plan History of Present Illness The patient is an 83-year-old male presenting with a large right-sided inguinal hernia. The hernia is described as not being painful but causing the patient to hold it when moving bowels. It has been present for several years, initially evaluated about two to four years ago, and the patient recalls having consulted a physician at that time who indicated the hernia did not require immediate surgical intervention based on its state then. The patient expresses concern re garding its size and potential impact on surrounding organs such as the bladder and bowel, although currently, there appears to be no interference or pain associated with it. Social History - Chronic smoking: Patient smokes at least one pack per day and has smoked for over 70 years. Review of Systems - Gastrointestinal: Reports holding hernia during bowel movements. - Genitourinary: Reports increased urinary frequency with urination occurring approximately 84 times per week. Physical Exam General: Cooperative and healthy appearing Nutritional Appearance: Well nourished Orientation/consciousness: Patient oriented x3 Limitations: No limitations Head: Normal to inspection General: Appearance normal, both eyes and all related structures Neck: Normal visual inspection Chest: Normal palpation of entire chest wall Respiratory: Normal respiratory effort Neurology: Patient oriented x3 Results Plan 1. Right inguinal hernia: It is a large hernia and a surgical opinion would be optimum. Patient will decide if he wants a referral from me or he is seeing his urologist next week and get it from there. 2.Hypertension: Blood pressure is in range. Continue medications at same dosage. 3.Tobacco use disorder: Patient was counseled again to quit smoking. Patient was informed and verbally consented to the use of an ambient scribe for clinic note documentation during this visit. Discussion Notes The patient and I discussed the evaluation of his large right-sided inguinal hernia, emphasizing the importance of pursuing a surgical consult if there are any concerns about its size or impact on bodily functions. While no current pain or interference was noted, patient safety and long-term care remain a priority. Risks associated with chronic smoking habits were reviewed, and cessation support was encouraged to prevent further respiratory or cardiovascular issues. The patient was advised to continue his current antihypertensive regimen and follow-up on his ophthalmologic condition. A prescription for Hydrocortisone cream was refilled as requested. We agreed on a follow-up in three months to reassess overall health and monitor ongoing conditions. Patient Instructions - Follow up with a surgeon for further evaluation of the inguinal hernia. - Consider smoking cessation and discuss with a healthcare provider for support options. - Continue taking Lisinopril for hypertension as prescribed. - Obtain refill for Hydrocortisone cream and use as directed for any topical pain relief. - Maintain regular eye exams and adhere to prescribed ocular medications. - Monitor urinary patterns and report any significant changes. Medications: Refilled hydrocortisone 2.5% 1 appl topical BID PRN 20 grams 0RF skin irritation
== END 2024-04-19 11:26 | disposition home or self-care (01) ==
PROVIDERS: PCP Internal Medicine; Visit Provider Internal Medicine
DX: F32.0 Major depressive disorder, single episode, mild (principal); I10 Essential (primary) hypertension; S32.000A Wedge compression fracture of unspecified lumbar vertebra, initial encounter for closed fracture; F17.200 Nicotine dependence, unspecified, uncomplicated

== ENCOUNTER → 2024-04-19 10:50 | Outpatient (BNVA) | payer MEDICARE, SELFPAY | PROVIDERS: PCP Internal Medicine; Visit Provider Internal Medicine | DX: F32.0 Major depressive disorder, single episode, mild (principal); I10 Essential (primary) hypertension; S32.000D Wedge compression fracture of unspecified lumbar vertebra, subsequent encounter for fracture with routine healing; F17.200 Nicotine dependence, unspecified, uncomplicated; Z71.6 Tobacco abuse counseling | CPT/HCPCS: 99212 ==

== ENCOUNTER 2024-09-14 10:27 | Outpatient (REF) | payer MEDICARE, SELFPAY ==
[2024-09-14 12:08] LABS: Hematocrit 44.8 % (42.0-52.0); Hemoglobin 14.6 g/dl (14.0-18.0); Mean Corpuscular HGB Conc 32.6 g/dl (31.0-36.0); Mean Corpuscular Hemoglobin 31.3 pg (27.0-33.0); Mean Corpuscular Volume 95.9 fL (80.0-98.0); Mean Platelet Volume 10.9 fL (9.4-12.4); Platelet Count 146 X10*3/uL (160-400); Red Blood Count 4.67 X10*6/uL (4.60-5.80)
[2024-09-14 12:29] LABS: Appearance Urine Cloudy; Color Urine Dark Yellow; Glucose Urine UA Negative (Negative); Leukocyte Esterase Urine Large (3+) (Negative); Nitrite Urine Positive (Negative); PH 5.5 (5.0-9.0); UMIC TRIGGER UA YES; Urine Blood Trace (Negative); Urine Ketones Trace mg/dL (Negative); Urine Protein 30 (1+) mg/dL (Neg-Trace)
[2024-09-14 12:34] LABS: Bacteria Urine Trace (None Seen); Hyaline Casts Urine 0-2 /LPF (0-2); Squamous Epithelial Cell Urine 0-2 /HPF (0-2); WBC Urine >50 /HPF (0-5)
[2024-09-14 12:43] LABS: Alanine Aminotransferase 14 U/L (0-40); Albumin Level 4.1 g/dL (3.5-5.0); Alkaline Phosphatase 63 U/L (39-117); Anion Gap 10 (12-20); Aspartate Amino Transferase 21 U/L (5-37); Bilirubin Direct 0.2 mg/dL (0.0-0.5); Bilirubin Total 0.5 mg/dL (0.0-1.0); Blood Urea Nitrogen 17 mg/dL (9-16); Calcium 9.4 mg/dL (8.4-10.2); Carbon Dioxide 34 mmol/L (22-29); Chloride 103 mmol/L (96-108); Estimated Glomerular Filt Rate > 60; Glucose Random 121 mg/dL (60-115); Sodium 143 mmol/L (135-145); Total Protein 6.8 g/dL (6.5-8.0)
--- OUTSIDE RECORDS SUMMARY | 2024-09-14 12:48 | XMS_ITS | Clinical Summary ---
Author Organization [facility] ity Address [address] [place] [address] Care Team Providers Care Recovery Room Rn Name Role Phone HinojosaEfrain DO Primary Care Provider [phone] Social History Tobacco Use Types Packs/Day Years [...] age to complete this topic Care Teams Recovery Room Rn Relationship Specialty Start Date End Date Efrain Hinojosa DO [address] [place], [place] PCP - General Family Medicine 08/31/18
[2024-09-14 12:57] LABS: Thyroid Stimulating Hormone 1.94 uIU/mL (0.32-4.0)
== END 2024-09-14 10:28 | disposition home or self-care (01) ==
LOC: HO.LAB 10:27
PROVIDERS: PCP Internal Medicine; Visit Provider Internal Medicine
DX: E11.9 Type 2 diabetes mellitus without complications (principal); I10 Essential (primary) hypertension; R63.4 Abnormal weight loss; F32.0 Major depressive disorder, single episode, mild; M06.9 Rheumatoid arthritis, unspecified; F17.210 Nicotine dependence, cigarettes, uncomplicated; Z95.0 Presence of cardiac pacemaker
CPT/HCPCS: 36415; 80048; 80076; 81001; 83036; 84443; 85027; 96127; 99212

== ENCOUNTER 2024-09-14 10:27 | Outpatient (AMB) | payer MEDICARE, SELFPAY ==
--- NOTE | 2024-09-14 10:31 | A.OFFPC_ITS ---
Vital Signs 09/14/24 10:33 Height 5 ft 8 in Weight 151 lb 8 oz BMI 23.0 BP 132/80 Blood Pressure Location Lt brachial Position Sitting Pulse 60 Pulse Source Pulse Oximeter Temp 97.4 F Temp Source Temporal Artery Scan Pulse Oximetry (%) 97 Oxygen Delivery Method Room Air Intake Visit Reasons: 3 month f/u Intake Note: Patient is here to follow up on DM, RA, HTN. Guest Laundry Attendant Required: No General Passenger Agent: Not Required per policy Accompanied by: Self / Same As Patient Allergies Penicillins Allergy (Mild, Verified 04/19/24 11:01) Hives Tobacco use date assessed: 09/14/24 Fall risk assessment: No Falls in past year Last assessed Fall Risk: 09/14/24 Dental Screening Dental Screen Date: 09/14/24 Did you have a dental visit in the last 12 months?: No Did you have a dental problem in the last 6 months where you did not have access to dental care?: No Was dental information given to patient?: Yes [facility] Medical History Inguinal hernia of right side without obstruction or gangrene Essential hypertension Compression fracture of spine Pacemaker High cholesterol Diabetes Pacemaker Surgical History History of prostate surgery History of permanent cardiac pacemaker placement Family History Mother Breast cancer Father Substance abuse Social History Housing: House Alcohol intake: never Patient Tobacco Use Status: Current everyday Tobacco user Tobacco use type: Cigarette Cigarette Packs Per Day: 1 Cigarettes Per Day: 20 e-Cigarette/Vaping Use: Never Used 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 1. Little interest or pleasure in doing things: not at all 2. Feeling down, depressed, or hopeless: not at all 3. Trouble falling or staying asleep, or sleeping too much: not at all 4. Feeling tired or having little energy: not at all 5. Poor appetite or overeating: not at all 6. Feeling bad about yourself - or that you are a failure or have let yourself or your family down: not at all 7. Trouble concentrating on things, such as reading the newspaper or watching television: not at all 8. Moving or speaking so slowly that other people could have noticed. Or the opposite - being so fidgety or restless that you have been moving around a lot more than usual: not at all 9. Thoughts that you would be better off or of hurting yourself in some way: not at all Total score: 0 Depression Screening Interpretation: Negative Depression Screening Done: Yes Source: Developed by Drs. Andrew Troncoso, Kassy Presley, Kaveh Banda and colleagues, with an educational farrah from [employer]. Thrive Questionnaire Date Thrive assessed: 09/14/24 I am a: Patient What is your living situation today?: I have a steady place to live Within the past 12 months, did the food you bought not last and you didn't have the money to get more?: Never true Within the past 12 months, did you worry whether your food would run out before you got money to buy more?: Never true Do you have trouble paying for medicines?: No Do you have trouble getting transportation to medical appointments?: No Do you have trouble paying your heating and electricity bill?: No Do you have trouble taking care of your child, family member or friend?: No Do you have trouble with day-to-day activities such as bathing, preparing meals, shopping, managing finances, etc.?: No Are you currently unemployed and looking for a job?: No Are you interested in more education?: No Please select the resources that you would like help with: None Currently or been in a relationship where the following occur: No concerns reported THRIVE Score: 0 AUDIT C Alcohol Use Questionnaire (AUDIT-C) 1. How often do you have a drink containing alcohol?: Never Total Score: 0 RED-7 AMB Questionnaire RED-7 Date RED - 7 assessed: 09/14/24 Feeling nervous, anxious, or on edge: 0 = Not at all Not being able to stop or control worryin = Not at all Worrying too much about different things: 0 = Not at all Trouble relaxin = Not at all Being so restless that it is hard to sit still: 0 = Not at all Becoming easily annoyed or irritable: 0 = Not at all Feeling afraid as if something awful might happen: 0 = Not at all Total RED-7 score (0-4 normal; 5-9 mild; 10-14 moderate; 15-21 severe): 0 Source: Developed by Drs. Andrew Troncoso, Kassy Presley, Kaveh Banda and colleagues, with an educational farrah from [employer]. Physical exam (Primary Care) Vital Signs: Last Vital Signs Temp 97.4 F 09/14/24 10:33 Pulse 60 09/14/24 10:33 BP 132/80 09/14/24 10:33 Pulse Ox 97 09/14/24 10:33 Oxygen Delivery Method Room Air 09/14/24 10:33 BMI result Body Mass Index 23.0 Tobacco/Smoking Status: Tobacco use Status Tobacco use date assessed 09/14/24 09/14/24 10:40 Patient Tobacco Use Status Current everyday Tobacco 09/14/24 10:40 Tobacco use type Cigarette 09/14/24 10:40 e-Cigarette/Vaping Use Never Used 09/14/24 10:40 PHQ-9: PHQ-9 Score PHQ-9: Total score 0 09/14/24 10:44 Depression Screening Interpretation: Negative Thrive Assessment: Date of Thrive Assessment Date Thrive assessed 09/14/24 09/14/24 10:40 Currently or been in a relationship where the following occur: No concerns reported Results AMB Hemoglobin A1c AMB Hemoglobin A1c 6.1 % Last Edit by JOSE Tan on 09/14/24 10:44 Results Reviewed Results Reviewed: Laboratory Last Values Hgb A1c (Clinic) 6.1 % (4.0-6.0) H 09/14/24 10:30 Coding Level of Care Code Est Pt Level 4 (23828) Complex EM visit Add On G2211 Diagnoses Essential hypertension I10 Diabetes E11.9 Assessment & Plan Assessment & Plan (1) Essential hypertension: Code(s): I10 - Essential (primary) hypertension Category: Medical Plan: Blood pressure is in range (2) Diabetes: Code(s): E11.9 - Type 2 diabetes mellitus without complications Category: Medical Plan: Stable Plan History of Present Illness The patient is an 84-year-old male presenting with a wellness visit. He has expressed financial concerns, fearing that his funds may be depleted soon. His body weight has not fluctuated much in the past six months, which he regards as positive. The patient experiences an active lifestyle, often participating in activities such as lawn maintenance, even though he reports significant back pain, which at times intensifies the difficulty of walking due to tightness. He continues to smoke heavily and stated that his previous problem with anxiety has been resolved. He mentioned undergoing recent laboratory testing, focusing on evaluating his renal and hepatic functions, along with providing a urine sample for further analysis. Social History - Reports physical activity including lawn maintenance, self-reliant for household tasks - Expresses concerns about financial sustainability - High rate of smoking enjoyment and frequency - Previously experienced anxiety but no longer present Review of Systems - Musculoskeletal: Reports significant back pain and tightness - Respiratory: Reports heavy smoking habit - Psychological: Denies current anxiety; previously present - General: Reports stable weight in the past six months Physical Exam General: Cooperative and healthy appearing Nutritional Appearance: Well nourished Orientation/consciousness: Patient oriented x3 Limitations: No limitations Head: Normal to inspection General: Appearance normal, both eyes and all related structures Neck: Normal visual inspection Chest: Normal palpation of entire chest wall Respiratory: Clear ormal respiratory effort Neurology: Patient oriented x3 Results Plan - Address the significant health implications of a high smoking rate, suggesting cessation programs or resources. - Evaluate options for managing substantial back pain, considering physical therapy or pain management strategies. - Acknowledge resolved anxiety issues, no immediate interventions required. - Continuous monitoring of renal and hepatic functions with follow-up testing to track health status. - Discussion of financial concerns with advice on seeking appropriate planning resources. Patient was informed and verbally consented to the use of an ambient scribe for clinic note documentation during this visit. Discussion Notes I discussed the primary health concerns brought up by the patient, particularly focusing on lifestyle choices like smoking that significantly impact his health. I suggested considering reduction or cessation strategies, along with potential supportive resources, to mitigate the health risks associated with smoking. The thorough examination of his back pain was acknowledged, and I proposed considering physical therapy or other measures for management. Given his resolved anxiety, no further treatment was deemed necessary in this regard. We also reviewed his financial concerns, mentioning the value of consulting for financial planning to alleviate future anxieties. Patient Instructions - Follow up on the recommendations for quitting smoking and explore available cessation resources. - Consider options for managing back pain, potentially physical therapy. - Monitor health status with suggested renal and hepatic function tests and urine analysis. - Seek advice or guidance on financial planning to ensure future stability and peace of mind. Orders: Orders AMB Hemoglobin A1c Today E11.9 - Type 2 diabetes mellitus without complications Basic Metabolic Panel Today E11.9 - Type 2 diabetes mellitus without complications, I10 - Essential (primary) hypertension UA and rflx microscopic Today E11.9 - Type 2 diabetes mellitus without complications, I10 - Essential (primary) hypertension Complete Blood Count no Diff Today E11.9 - Type 2 diabetes mellitus without complications, I10 - Essential (primary) hypertension Liver Panel Today E11.9 - Type 2 diabetes mellitus without complications, I10 - Essential (primary) hypertension Thyroid Stimulating Hormone Today E11.9 - Type 2 diabetes mellitus without complications, I10 - Essential (primary) hypertension Medications: Refilled amlodipine 5 mg PO DAILY 90 tabs 1RF
[2024-09-14 10:33] VITALS: BP 132/80; PULSE 60; TEMP 36.3; O2SAT 97; BMI 23.0
--- OUTSIDE RECORDS SUMMARY | 2024-09-14 11:55 | XMS_ITS | Clinical Summary ---
Author Organization [facility] ity Address [address] [place] [address] Care Team Providers Care Assembler Final Name Role Phone HinojosaEfrain DO Primary Care Provider [phone] Social History Tobacco Use Types Packs/Day Years Used Date Smoking Tobacco: Former Smokeless Tobacco: Former Sex and Gender Information Value Date Recorded Sex Assigned at Not on file Legal Sex Male 3:53 PM EST Gender Identity Not on file Sexual Orientation Not on file Obstetrics History Plan of Treatment Health Maintenance Due Date Last Done Comments DTaP,Tdap,and Td Vaccines (1 - Tdap) 1959 Pneumococcal Vaccine: 50+ Ye ars (1 of 1 - PCV) 1990 Zoster Vaccines (1 of 2) 1990 RSV Immunization Adult Patie nts (1 - 1-dose 75+ series) 2015 COVID-19 Vaccine (2023-2 5 season) 2024 Influenza Vaccine (Season Ended) 2025 HIB Vaccines Aged Out No longer eligi ble based on patient's age to complete this topic HPV Vaccines Aged Out No longer eligi ble based on patient's age to complete this topic Hepatitis A Vaccines Aged Out No long er eligible based on patient's age to complete this topic Hepatitis B Vaccines Aged Out No long er eligible based on patient's age to complete this topic IPV Vaccines Aged Out No longer eligi ble based on patient's age to complete this topic MMR Vaccines Aged Out No longer eligi ble based on patient's age to complete this topic Meningococcal ACWY Vaccine Aged Out N o longer eligible based on patient's age to complete this topic Meningococcal B Vaccine Aged Out No l onger eligible based on patient's age to complete this topic RSV Immunization Patients Un rianna 20 months Aged Out No longer eligible b ased on patient's age to complete this topic Varicella Vaccines Aged Out No longer eligible based on patient's age to complete this topic Care Teams Assembler Final Relationship Specialty Start Date End Date Efrain Hinojosa DO [address], [place] PCP - General Family Medicine 08/31/18
== END 2024-09-14 10:51 | disposition home or self-care (01) ==
LOC: HO.HMCH 10:28
PROVIDERS: PCP Internal Medicine; Visit Provider Internal Medicine
DX: I10 Essential (primary) hypertension (principal); E11.9 Type 2 diabetes mellitus without complications

== ENCOUNTER 2025-01-25 10:11 | Outpatient (REF) | payer MEDICARE, SELFPAY ==
[2025-01-25 11:38] LABS: Hematocrit 43.8 % (42.0-52.0); Hemoglobin 14.4 g/dl (14.0-18.0); Mean Corpuscular HGB Conc 32.9 g/dl (31.0-36.0); Mean Corpuscular Hemoglobin 31.0 pg (27.0-33.0); Mean Corpuscular Volume 94.4 fL (80.0-98.0); NRBC Abs Auto 0.000 X10*3/uL (0.0-0.012); NRBC Pct Auto 0.0 /100WBC (0.0-0.2); Platelet Count 140 X10*3/uL (160-400); Red Blood Count 4.64 X10*6/uL (4.60-5.80); White Blood Count 5.3 X10*3/uL (4.8-10.8)
[2025-01-25 11:45] LABS: Total Hemoglobin (HGBA1C) 3753.4027 umol/L
[2025-01-25 12:34] LABS: Alanine Aminotransferase 14 U/L (0-40); Albumin Level 4.2 g/dL (3.5-5.0); Alkaline Phosphatase 63 U/L (39-117); Anion Gap 11 (12-20); Aspartate Amino Transferase 20 U/L (5-37); Blood Urea Nitrogen 20 mg/dL (9-16); Calcium 8.9 mg/dL (8.4-10.2); Carbon Dioxide 31 mmol/L (22-29); Chloride 104 mmol/L (96-108); Cholesterol 196 mg/dL (<200); Estimated Glomerular Filt Rate > 60; HDL Cholesterol 52 mg/dL (>40); Potassium 4.4 mmol/L (3.3-5.1); Sodium 142 mmol/L (135-145); Total Protein 6.8 g/dL (6.5-8.0); Triglycerides 67 mg/dL (<150)
[2025-01-25 12:35] LABS: Thyroid Stimulating Hormone 1.58 uIU/mL (0.32-4.0)
[2025-01-25 12:58] LABS: Appearance Urine Cloudy; Glucose Urine UA Negative (Negative); PH 5.5 (5.0-9.0); Specific Gravity - Urine 1.020 (1.005-1.025); UMIC TRIGGER UA YES
[2025-01-25 13:03] LABS: Microalbum/Creatinine Ratio Ur 103.9 ug/mg cr (<30)
== END 2025-01-25 10:12 | disposition home or self-care (01) ==
LOC: HO.LAB 10:11
PROVIDERS: PCP Internal Medicine; Visit Provider Internal Medicine
DX: Z11.9 Encounter for screening for infectious and parasitic diseases, unspecified (principal); F32.0 Major depressive disorder, single episode, mild; I10 Essential (primary) hypertension; R63.4 Abnormal weight loss; F17.210 Nicotine dependence, cigarettes, uncomplicated
CPT/HCPCS: 36415; 80048; 80061; 80076; 81001; 82043; 82570; 83036; 84443; 85027; 86787; 99212

== ENCOUNTER 2025-01-25 10:11 | Outpatient (AMB) | payer MEDICARE, SELFPAY ==
--- NOTE | 2025-01-25 10:16 | A.OFFPC_ITS ---
Vital Signs 01/25/25 10:18 01/25/25 10:27 Height 5 ft 8 in Weight 150 lb BMI 22.8 BP 100/68 120/62 Blood Pressure Location Lt brachial Lt brachial Position Sitting Sitting Pulse 60 Pulse Source Pulse Oximeter Temp 97.3 F Temp Source Temporal Artery Scan Pulse Oximetry (%) 98 Oxygen Delivery Method Room Air Intake Visit Reasons: Follow Up Intake Note: Patient is here to follow up on HTN, DM . Staff Air Defense Officer Required: No Stonecutter Assistant: Not Required per policy Accompanied by: Self / Same As Patient Allergies Penicillins Allergy (Mild, Verified 01/25/25 10:18) Hives Tobacco use date assessed: 01/25/25 Fall risk assessment: No Falls in past year Last assessed Fall Risk: 01/25/25 Dental Screening Dental Screen Date: 09/14/24 [facility] Medical History Inguinal hernia of right side without obstruction or gangrene Essential hypertension Compression fracture of spine Pacemaker High cholesterol Diabetes Pacemaker Surgical History History of prostate surgery History of permanent cardiac pacemaker placement Family History Mother Breast cancer Father Substance abuse Social History Housing: House Alcohol intake: never Patient Tobacco Use Status: Current everyday Tobacco user Tobacco use type: Cigarette Cigarette Packs Per Day: 1 Cigarettes Per Day: 20 e-Cigarette/Vaping Use: Never Used 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 Cognitive needs: No Hearing needs: No Vision needs: Yes (glasses) Questionnaire Thrive Questionnaire Date Thrive assessed: 01/25/25 I am a: Patient What is your living situation today?: I have a steady place to live Within the past 12 months, did the food you bought not last and you didn't have the money to get more?: Never true Within the past 12 months, did you worry whether your food would run out before you got money to buy more?: Never true Do you have trouble paying for medicines?: No Do you have trouble getting transportation to medical appointments?: No Do you have trouble paying your heating and electricity bill?: No Do you have trouble taking care of your child, family member or friend?: No Do you have trouble with day-to-day activities such as bathing, preparing meals, shopping, managing finances, etc.?: No Are you currently unemployed and looking for a job?: No Are you interested in more education?: No Please select the resources that you would like help with: None Currently or been in a relationship where the following occur: No concerns reported THRIVE Score: 0 AUDIT C Alcohol Use Questionnaire (AUDIT-C) 1. How often do you have a drink containing alcohol?: Never Total Score: 0 RED-7 AMB Questionnaire RED-7 Date RED - 7 assessed: 09/14/24 Feeling nervous, anxious, or on edge: 1 = Several days Not being able to stop or control worryin = Several days Worrying too much about different things: 1 = Several days Trouble relaxin = Several days Being so restless that it is hard to sit still: 1 = Several days Becoming easily annoyed or irritable: 0 = Not at all Feeling afraid as if something awful might happen: 0 = Not at all Total RED-7 score (0-4 normal; 5-9 mild; 10-14 moderate; 15-21 severe): 5 Source: Developed by Drs. Andrew Troncoso, Kassy Presley, Kaveh Banda and colleagues, with an educational farrah from [employer]. Physical exam (Primary Care) Vital Signs: Last Vital Signs Temp 97.3 F 01/25/25 10:18 Pulse 60 01/25/25 10:18 BP 120/62 01/25/25 10:27 Pulse Ox 98 01/25/25 10:18 Oxygen Delivery Method Room Air 01/25/25 10:18 BMI result Body Mass Index 22.8 Tobacco/Smoking Status: Tobacco use Status Tobacco use date assessed 01/25/25 01/25/25 10:26 Patient Tobacco Use Status Current everyday Tobacco 01/25/25 10:17 Tobacco use type Cigarette 01/25/25 10:17 e-Cigarette/Vaping Use Never Used 01/25/25 10:17 Thrive Assessment: Date of Thrive Assessment Date Thrive assessed 01/25/25 01/25/25 10:17 Currently or been in a relationship where the following occur: No concerns reported Results AMB Hemoglobin A1c AMB Hemoglobin A1c 6.2 % Last Edit by JOSE Tan on 01/25/25 10:32 Results Reviewed Results Reviewed: Laboratory Last Values Hgb A1c (Clinic) 6.2 % (4.0-6.0) H 01/25/25 10:18 Coding Level of Care Code Est Pt Level 4 (76225) Complex EM visit Add On G2211 Diagnoses Essential hypertension I10 Mild depression F32.0 Assessment & Plan Assessment & Plan (1) Essential hypertension: Code(s): I10 - Essential (primary) hypertension Category: Medical Plan: Continue meds at same dosage (2) Mild depression: Code(s): 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 - Osteoporosis: The patient recalls a previous bone density test approximately 40 years ago, which indicated a decrease in height from 5 foot 10-1/2 to 5 foot 8, suggesting osteoporosis. Social History - The patient continues to drive despite visual impairment concerns. 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 - The patient continues to smoke. 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 - Musculoskeletal: Reports a decrease in height, suggesting osteoporosis. Physical Exam General: Cooperative and healthy appearing Nutritional Appearance: Well nourished Orientation/consciousness: Patient oriented x3 Limitations: No limitations Head: Normal to inspection General: Appearance normal, both eyes and all related structures Neck: Normal visual inspection Chest: Normal palpation of entire chest wall Respiratory: N ormal respiratory effort Neurology: Patient oriented x3, reports going blind but still driving. Results Plan 1. 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 2. Osteoporosis - The patient recalls a significant decrease in height, suggesting osteoporosis, and may benefit from a current bone density assessment. Discussion Notes During the visit, we discussed the patient's concerns about visual impairment and the potential need for further evaluation by an window shade cutter and mounter. We also talked about the history of osteoporosis and the possibility of conducting a current bone density test to assess the condition. Patient Instructions - Follow up with an window shade cutter and mounter for a comprehensive eye examination. - Consider scheduling a bone density test to evaluate osteoporosis status. 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, single episode, mild, I10 - Essential (primary) hypertension Lipid Panel Today F32.0 - Major depressive disorder, single episode, mild, I10 - Essential (primary) hypertension Thyroid Stimulating Hormone Today F32.0 - Major depressive disorder, single episode, mild, I10 - Essential (primary) hypertension Hemoglobin A1c Today F32.0 - Major depressive disorder, single episode, mild, I10 - Essential (primary) hypertension AMB Hemoglobin A1c Today E11.9 - Type 2 diabetes mellitus without complications Complete Blood Count no Diff Today F32.0 - Major depressive disorder, single episode, mild, I10 - Essential (primary) hypertension Liver Panel Today F32.0 - Major depressive disorder, single episode, mild, I10 - Essential (primary) hypertension Varicella IgG Antibody Today F32.0 - Major depressive disorder, single episode, mild, I10 - Essential (primary) hypertension, Z11.9 - Encounter for screening for infectious and parasitic diseases, unspecified Microalbumin, Random (w Creat) Today F32.0 - Major depressive disorder, single episode, mild, I10 - Essential (primary) hypertension
[2025-01-25 10:18] VITALS: BP 100/68; PULSE 60; TEMP 36.3; O2SAT 98; BMI 22.8
[2025-01-25 10:27] VITALS: BP 120/62
--- OUTSIDE RECORDS SUMMARY | 2025-01-25 12:26 | XMS_ITS | Clinical Summary ---
Author Organization [facility] ity Address [address] [place] [address] Care Team Providers Care Video News Editor Name Role Phone Hinojosa, Efrain Primary Care Provider [phone] Social History Tobacco Use Types Packs/Day Years Used Date Smoking Tobacco: Former Smokeless Tobacco: Former Sex and Gender Information Value Date Recorded Sex Assigned at Not on file Legal Sex Male 3:53 PM EST Gender Identity Not on file Sexual Orientation Not on file Obstetrics History Plan of Treatment Health Maintenance Due Date Last Done Comments Pneumococcal Vaccine: 50+ Years (1 of 1 - PCV) 1990 Zoster Vaccines (1 of 2) 1990 RSV Immunization Adult Patients (1 - 1-dose 75+ series) 2015 Depression Screening 05/17/2024 COVID-19 Vaccine (3 - 2024-2 6 season) 2025 08/28/2020, 07/31/2020 Influenza Vaccine (#1) 2025 04/08/2020 DTaP,Tdap,and Td Vaccines (2 - Td or Tdap) 03/26/2030 03/26/2020 HIB Vaccines Aged Out No longer eligi [...] to complete this topic RSV Immunization Patients Under 20 months Aged Out No longer eligible b ased on patient's age to complete this topic Varicella Vaccines Aged Out No longer eligible based on patient's age to complete this topic Care Teams Video News Editor Relationship Specialty Start Date End Date Efrain Hinojosa DO [address] [place], [place] PCP - General Family Medicine 08/31/18
== END 2025-01-25 10:51 | disposition home or self-care (01) ==
LOC: HO.HMCH 10:12
PROVIDERS: PCP Internal Medicine; Visit Provider Internal Medicine
DX: I10 Essential (primary) hypertension (principal); F32.0 Major depressive disorder, single episode, mild; E11.9 Type 2 diabetes mellitus without complications

== ENCOUNTER 2025-04-25 09:58 | Outpatient (AMB) | payer MEDICARE, SELFPAY ==
--- NOTE | 2025-04-25 10:03 | A.OFFPC_ITS ---
Vital Signs 04/25/25 10:08 Height 5 ft 3 in Weight 150 lb BMI 26.6 BP 120/70 Blood Pressure Location Lt brachial Position Sitting Pulse 60 Pulse Source Pulse Oximeter Temp 97.1 F Temp Source Temporal Artery Scan Pulse Oximetry (%) 97 Oxygen Delivery Method Room Air Intake Visit Reasons: 3 mo follow up Intake Note: Patient is here to follow up on HTN, DM. Fulfillment Specialist Required: No Direct Mail Marketer: Not Required per policy Accompanied by: Self / Same As Patient Allergies Penicillins Allergy (Mild, Verified 04/25/25 10:35) Hives Medication List - Last Reconciled 04/25/25 by Jin Trejo MD acetaminophen (Tylenol Extra Strength) 500 mg PO Q6H PRN amlodipine 5 mg PO DAILY B-complex with vitamin C (Super B Complex-Vitamin C tablet) 1 tab PO DAILY cholecalciferol (vitamin D3) 10 mcg PO DAILY finasteride 5 mg PO DAILY garlic 1,000 mg PO DAILY hydrocortisone 2.5% 1 appl topical BID PRN lisinopril 20 mg PO DAILY lorazepam 0.5 mg PO BEDTIME PRN tamsulosin 0.4 mg PO DAILY Tobacco use date assessed: 04/25/25 Fall risk assessment: No Falls in past year Last assessed Fall Risk: 04/25/25 Dental Screening Dental Screen Date: 09/14/24 [facility] Medical History Inguinal hernia of right side without obstruction or gangrene Essential hypertension Compression fracture of spine Pacemaker High cholesterol Diabetes Pacemaker Surgical History History of prostate surgery History of permanent cardiac pacemaker placement Family History Mother Breast cancer Father Substance abuse Social History Housing: House Alcohol intake: never Patient Tobacco Use Status: Current everyday Tobacco user Tobacco use type: Cigarette Cigarette Packs Per Day: 1 Cigarettes Per Day: 20 e-Cigarette/Vaping Use: Never Used 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 Cognitive needs: No Hearing needs: No Vision needs: Yes (glasses) Questionnaire Thrive Questionnaire Date Thrive assessed: 01/25/25 I am a: Patient What is your living situation today?: I have a steady place to live Within the past 12 months, did the food you bought not last and you didn't have the money to get more?: Never true Within the past 12 months, did you worry whether your food would run out before you got money to buy more?: Never true Do you have trouble paying for medicines?: No Do you have trouble getting transportation to medical appointments?: No Do you have trouble paying your heating and electricity bill?: No Do you have trouble taking care of your child, family member or friend?: No Do you have trouble with day-to-day activities such as bathing, preparing meals, shopping, managing finances, etc.?: No Are you currently unemployed and looking for a job?: No Are you interested in more education?: No Please select the resources that you would like help with: None Currently or been in a relationship where the following occur: No concerns reported THRIVE Score: 0 RED-7 AMB Questionnaire RED-7 Date RED - 7 assessed: 09/14/24 Source: Developed by Drs. Andrew Troncoso, Kassy Presley, Kaveh Banda and colleagues, with an educational farrah from [employer]. Physical exam (Primary Care) Vital Signs: Last Vital Signs Temp 97.1 F 04/25/25 10:08 Pulse 60 04/25/25 10:08 BP 120/70 04/25/25 10:08 Pulse Ox 97 04/25/25 10:08 Oxygen Delivery Method Room Air 04/25/25 10:08 BMI result Body Mass Index 26.6 Tobacco/Smoking Status: Tobacco use Status Tobacco use date assessed 04/25/25 04/25/25 10:16 Patient Tobacco Use Status Current everyday Tobacco 04/25/25 10:03 Tobacco use type Cigarette 04/25/25 10:03 e-Cigarette/Vaping Use Never Used 04/25/25 10:03 Thrive Assessment: Date of Thrive Assessment Date Thrive assessed 01/25/25 04/25/25 10:03 Currently or been in a relationship where the following occur: No concerns reported Results AMB Hemoglobin A1c AMB Hemoglobin A1c 6.5 % Last Edit by JOSE Tan on 04/25/25 10:24 Results Reviewed Results Reviewed: Laboratory Last Values Hgb A1c (Clinic) 6.5 % (4.0-6.0) H 04/25/25 10:03 Coding Level of Care Code Est Pt Level 4 (14523) Add On Problem Visit Only Diagnoses Essential hypertension I10 Assessment & Plan Assessment & Plan (1) Essential hypertension: Code(s): I10 - Essential (primary) hypertension Category: Medical Plan: History of Present Illness - The patient is an 84-year-old male presenting for a follow-up visit for chronic disease management. - He reports taking amlodipine, lisinopril, and a prostate medication daily. - The patient has stopped taking lorazepam for anxiety and manages symptoms with breathing exercises. - He reports sometimes experiencing flashing lights in his eyes. - He also has a productive cough, and expectorates the sputum. Social History - Tobacco Use: The patient continues to smoke cigarettes. - Travel: He recently traveled to [place] and [facility] in February. Review of Systems - General: Denies any acute concerns. - Eyes: Reports occasional photopsia. - Respiratory: Reports a productive cough. - Psychiatric: Denies current anxiety but endorses using non-pharmacologic methods for management. Physical Exam General: Appearance normal, both eyes and all related structures Nutritional Appearance: Well nourished Orientation/consciousness: Patient oriented x3 Limitations: No limitations Head: Normal to inspection Neck: Normal visual inspection Chest: Normal palpation of entire chest wall Respiratory: Normal respiratory effort, patient reports occasional sputum production Neurology: Patient oriented x3 Results - Labs: Blood work from January was reported as good. - A1c is 6.5%, noted to be similar to his usual value of around 6.2%. - Blood glucose done today was noted to be good. Plan - The patient will continue his current medications for hypertension, BPH, and diabetes. - He reports discontinuing lorazepam and is managing anxiety with breathing techniques. - The patient was advised to contact the pharmacy for any needed refills. - A follow-up appointment is scheduled in three months. Discussion Notes I reviewed the patient's medication adherence, confirming he takes his aml odipine, lisinopril, and prostate medication. We discussed that he has stopped taking lorazepam and is effectively managing his anxiety with breathing exercises, and he was encouraged for this. I informed him that his blood work from January and his sugars today were good, with an A1c of 6.5, which is not concerning. His lungs were clear on examination. I advised him to follow up in three months. Patient Instructions - Continue taking your amlodipine, lisinopril, and prostate medication as prescribed. - You can continue using your breathing exercises to manage anxiety, as they seem to be working well for you. - If you need refills for any of your medications, please contact your pharmacy. - Please return for a follow-up visit in three months. Orders: Orders AMB Hemoglobin A1c Today E11.9 - Type 2 diabetes mellitus without complications
[2025-04-25 10:08] VITALS: BP 120/70; PULSE 60; TEMP 36.2; O2SAT 97; BMI 26.6
== END 2025-04-25 10:36 | disposition home or self-care (01) ==
LOC: HO.HMCH 09:59
PROVIDERS: PCP Internal Medicine; Visit Provider Internal Medicine
DX: E11.9 Type 2 diabetes mellitus without complications (principal); I10 Essential (primary) hypertension

== ENCOUNTER → 2025-04-25 09:58 | Outpatient (BNVA) | payer MEDICARE, SELFPAY | PROVIDERS: PCP Internal Medicine; Visit Provider Internal Medicine | DX: I10 Essential (primary) hypertension (principal); E11.9 Type 2 diabetes mellitus without complications | CPT/HCPCS: 83036; 99212 ==